=== PATIENT | male | born 1955 | race Caucasian/White ===

== ENCOUNTER → 2016-08-27 | Outpatient (CLI) | payer SELFPAY ==
[2016-08-27 15:19] LABS: Basophils # (A) 0.1 k/uL (0-0.2); Basophils % (A) 2 %; CH 34.6; Eosinophils # (A) 0.6 k/uL (0-0.7); Eosinophils % (A) 12 %; HCT 39.6 % (39.0-53.0); HDW 2.28; HGB 12.7 gm/dL (13.0-17.5); Luc # (Auto) 0.12; Luc % (Auto) 2; Lymphocytes # (A) 0.7 k/uL (1.0-4.8); Lymphocytes % (A) 14 %; MCH 33.9 pg (25.0-35.0); MCHC 32.1 g/dL (31.0-37.0); MCV 105.6 fL (80.0-100.0); Macrocytosis Moderate; Mean Platelet Volume 8.8; Monocytes # (A) 0.5 k/uL (0-1.0); Monocytes % (A) 10 %; Neutrophils # (A) 2.9 k/uL (1.3-7.7); Neutrophils % (A) 60 %; RBC 3.75 m/uL (4.30-5.90); RDW 14.6 % (11.5-15.5); WBC 4.9 k/uL (3.8-10.6); WBC (Perox) 5.05
[2016-08-27 15:29] LABS: Calcium 8.6 mg/dL (8.4-10.2); Magnesium 2.3 mg/dL (1.6-2.3); Total Bilirubin 1.6 mg/dL (0.2-1.3); Total Protein 7.8 g/dL (6.3-8.2); Uric Acid 11.6 mg/dL (3.5-8.5)
[2016-08-27 15:58] LABS: Prostate Specific Antigen 0.11 ng/mL (0.00-4.00)
[2016-08-27 16:04] LABS: Polychromasia Present
[2016-08-27 21:15] LABS: Hemoglobin A1C 5.1 % (4.2-6.1)
== END | disposition home or self-care (01) ==
LOC: LABWHC1 14:30
PROVIDERS: ATTEND Internal Medicine
DX: E11.22 Type 2 diabetes mellitus with diabetic chronic kidney disease (principal); N18.4 Chronic kidney disease, stage 4 (severe); D64.9 Anemia, unspecified; N40.0 Benign prostatic hyperplasia without lower urinary tract symptoms; E03.9 Hypothyroidism, unspecified; K74.60 Unspecified cirrhosis of liver; B19.20 Unspecified viral hepatitis C without hepatic coma
CPT/HCPCS: 36415; 80053; 80061; 82105; 82378; 83036; 83735; 84153; 84443; 84550; 85025; 86301

== ENCOUNTER → 2016-09-05 | Outpatient (CLI) | payer SELFPAY ==
--- NOTE | 2016-09-05 20:16 | CT ---
EXAMINATION TYPE: CT abdomen pelvis wo con DATE OF EXAM: 09/05/2016 7:09 PM COMPARISON: 07/10/2014 HISTORY: Patient poor historian. Patient has "bad liver" and umbilical hernia. CT DLP: 333.8 mGycm Automated exposure control for dose reduction was used. TECHNIQUE: Helical acquisition of images was performed from the lung bases through the pelvis. FINDINGS: The lung bases are clear. There is no pleural effusion. There is abdominal ascites. The margin of the liver is somewhat irregular consistent with cirrhosis. Spleen is large and measures 13 cm. There is no sign of pancreatic mass. There are multiple calcifications in the gallbladder. Bile ducts are not dilated. The gastric fundal wall is somewhat thickened. I see no discrete mass. There is no adrenal mass. Kidneys have normal size. There is no hydronephrosis. Ureters are not dilat ed. There is no retroperitoneal adenopathy. There is ascites fluid extending into an umbilical hernia . There is atherosclerosis vascular calcification. I see no sign of a bowel obstruction. There is no intestinal wall thickening. There are no dilated loops. There are multiple sigmoid diverticula. There is no sign of diverticulitis. There is mild anterior wedging of L5 and L2 vertebral bodies. Bladder distends smoothly. There is no evidence of a pelvic mass. IMPRESSION: THERE ARE CHANGES OF HEPATIC CIRRHOSIS. Moderate ascites. Ascites fluid is improved slightly compared to old exam. Umbilical hernia. The hernia is mostly new compared to old exam. Mild splenomegaly. Multiple calcified gallstones are increased in number compared to old exam. Athero sclerotic vascular disease. There are mild lumbar compression fractures that are probably new compare d to old exam.
== END | disposition home or self-care (01) ==
LOC: RADCTMAIN 16:54
PROVIDERS: ATTEND Internal Medicine
DX: K74.60 Unspecified cirrhosis of liver (principal); K42.9 Umbilical hernia without obstruction or gangrene; R16.1 Splenomegaly, not elsewhere classified; K80.20 Calculus of gallbladder without cholecystitis without obstruction; R18.8 Other ascites; I70.90 Unspecified atherosclerosis
CPT/HCPCS: 74176

== ENCOUNTER → 2016-12-03 | Outpatient (CLI) | payer MEDICARE ==
[2016-12-03 15:46] LABS: Mean Platelet Volume 7.8
[2016-12-03 16:01] LABS: INR 1.3 (<1.1); Prothrombin Time 12.7 sec (9.0-12.0)
== END | disposition home or self-care (01) ==
LOC: LABWHC1 15:13
PROVIDERS: ATTEND Internal Medicine
DX: D64.9 Anemia, unspecified (principal); K74.60 Unspecified cirrhosis of liver; B19.20 Unspecified viral hepatitis C without hepatic coma
CPT/HCPCS: 36415; 82105; 82378; 85049; 85610; 86301

== ENCOUNTER → 2017-01-22 | Outpatient (CLI) | payer MEDICARE ==
[2017-01-22 14:37] LABS: Aty Lym Flag Slight; CH 34.9; CHCM 33.6; HCT 37.6 % (39.0-53.0); HDW 2.55; HGB 12.7 gm/dL (13.0-17.5); MCH 35.3 pg (25.0-35.0); MCHC 33.8 g/dL (31.0-37.0); MCV 104.4 fL (80.0-100.0); Macrocytosis Slight; Mean Platelet Volume 8.8; WBC 5.3 k/uL (3.8-10.6); WBC (Perox) 5.29
[2017-01-22 14:43] LABS: Bilirubin, Delta 0.8 mg/dL (0.0-0.2); Total Bilirubin 2.4 mg/dL (0.2-1.3)
[2017-01-22 14:47] LABS: Add Differential Manual Differential
[2017-01-22 14:51] LABS: Nucleated Red Blood Cells 0 /100 WBC (0-0); Polychromasia Present; Total Cells Counted 100
[2017-01-23 14:56] LABS: Hepatits C Virus RNA, Quant <12 IU/mL (<12); LOG HCV IU/mL <1.08 (<1.08)
== END | disposition home or self-care (01) ==
LOC: LABWHC1 13:56
PROVIDERS: ATTEND Physician Assistant
DX: B18.2 Chronic viral hepatitis C (principal)
CPT/HCPCS: 36415; 80076; 85025; 87522

== ENCOUNTER → 2017-03-10 | Outpatient (CLI) | payer MEDICARE ==
[2017-03-10 14:11] LABS: Basophils % (A) 1 %; CH 35.2; CHCM 31.5; Eosinophils # (A) 0.4 k/uL (0-0.7); Eosinophils % (A) 7 %; HDW 2.76; HGB 10.5 gm/dL (13.0-17.5); Hypochromasia Slight; Luc # (Auto) 0.21; Luc % (Auto) 4; Lymphocytes # (A) 0.6 k/uL (1.0-4.8); Lymphocytes % (A) 10 %; MCH 36.8 pg (25.0-35.0); MCHC 32.7 g/dL (31.0-37.0); Macrocytosis Marked; Monocytes # (A) 0.6 k/uL (0-1.0); Monocytes % (A) 10 %; Neutrophils # (A) 3.7 k/uL (1.3-7.7); Neutrophils % (A) 68 %; RBC 2.84 m/uL (4.30-5.90); RDW 15.6 % (11.5-15.5); WBC 5.5 k/uL (3.8-10.6)
[2017-03-10 14:15] LABS: Bilirubin, Delta 0.7 mg/dL (0.0-0.2); MCV 112.5 fL (80.0-100.0); Total Bilirubin 2.3 mg/dL (0.2-1.3); Total Protein 8.3 g/dL (6.3-8.2)
[2017-03-10 14:59] LABS: Manual Review Performed; Polychromasia Present
--- NOTE | 2017-03-10 15:15 | US ---
EXAMINATION TYPE: US liver DATE OF EXAM: 03/10/2017 COMPARISON: Prior ultrasound abdomen 02/28/2016, CT abdomen pelvis 09/05/2016 CLINICAL HISTORY: K70.30 alcoholic cirrhosis of liver without cirrhosis. Hx of hep c EXAM MEASUREMENTS: Liver Length: 15.6 cm CHD: 0.3 cm Right Kidney: 9.6 x 4.5 x 4.0 cm Pancreas: Tail obscured by overlying bowel gas. Appears echogenic. Suboptimal visualization. Liver: Two hypoechoic lesions identified in the right lobe. 1- hypoechoic and solid appearing measu ring 2.5 x 2.1 x 2.3 cm with peripheral vascularity. 2 - hypoechoic nonvascular measuring 2.2 x 2.4 x 2.4 cm. Liver appears heterogenous, course and lobular. Gallbladder: In area of gallbladder, area seen with multiple echogenic areas with shadowing. No philippe ar lumen seen. Evidence for sonographic Porter's sign: neg CHD: wnl Right Kidney: wnl There is no ascites. IMPRESSION: Hypoechoic masses within the right lobe of the liver, consider liver MRI, hepatoma. Limit ed exam. Likely within the gallbladder there is wall echo shadow sign compatible with cholelithiasis. Gallbladder may be contracted.
[2017-03-12 14:52] LABS: Hepatits C Virus RNA, Quant <12 IU/mL (<12); LOG HCV IU/mL <1.08 (<1.08)
== END | disposition home or self-care (01) ==
LOC: RADUSWWP 13:02
DX: R16.0 Hepatomegaly, not elsewhere classified (principal); K70.30 Alcoholic cirrhosis of liver without ascites
CPT/HCPCS: 76705; 80076; 82105; 85025; 87522

== ENCOUNTER → 2017-03-19 | Outpatient (CLI) | payer MEDICARE | END | disposition home or self-care (01) | LOC: LABWHC1 16:15 | PROVIDERS: ATTEND Physician Assistant | DX: R16.0 Hepatomegaly, not elsewhere classified (principal) | CPT/HCPCS: 36415; 82565; 84520 ==

== ENCOUNTER → 2017-03-21 | Outpatient (CLI) | payer MEDICARE ==
--- NOTE | 2017-03-21 14:43 | MR ---
r EXAMINATION TYPE: MR liver wo con DATE OF EXAM: 03/21/2017 COMPARISON: Previous study dated 11/08/2014. HISTORY: Follow up per Ultrasound GFR 27 Unable to Administer Contrast for MRI Standard multiplanar, multisequence MRI departmental protocol Multiplanar, multisequence images of the abdomen were acquired. Diffusion weighted imaging was perfor med. FINDINGS: The study is limited due to the lack of contrast. There is ascites present. This has improv ed slightly from previous. The liver is normal in size measuring 15 cm. The liver is nodular and heterogenous. This is compatibl e with the patient's history of cirrhosis. Due to the lack of contrast I could not exclude a small fo cus of malignancy. There are multiple gallstones within the gallbladder. The portal vein appears patent. The spleen is enlarged measuring over 13 cm. Both adrenal glands appear normal. There is no evidence of hydronephrosis. The pancreas appears unremarkable. There is a large umbilical hernia containing fat only with a mouth measuring 3.2 cm. IMPRESSION: 1. LIMITED STUDY DUE TO THE LACK OF CONTRAST. 2. FINDINGS COMPATIBLE WITH CIRRHOSIS OF THE LIVER. 3. ASCITES. 4. SPLENOMEGALY.
== END | disposition home or self-care (01) ==
LOC: RADMRIMAIN 12:58
PROVIDERS: ATTEND Physician Assistant
DX: R16.1 Splenomegaly, not elsewhere classified (principal); R18.8 Other ascites
CPT/HCPCS: 74181

== ENCOUNTER → 2017-05-28 | Outpatient (CLI) | payer MEDICARE, OTHER ==
[2017-05-28 14:28] LABS: Basophils % (A) 1 %; CH 33.7; CHCM 32.5; Eosinophils # (A) 0.3 k/uL (0-0.7); Eosinophils % (A) 6 %; HCT 42.8 % (39.0-53.0); HDW 2.49; HGB 13.6 gm/dL (13.0-17.5); Luc % (Auto) 2; Lymphocytes # (A) 0.6 k/uL (1.0-4.8); Lymphocytes % (A) 15 %; MCHC 31.7 g/dL (31.0-37.0); MCV 104.1 fL (80.0-100.0); Macrocytosis Slight; Mean Platelet Volume 8.2; Monocytes # (A) 0.5 k/uL (0-1.0); Monocytes % (A) 11 %; Neutrophils # (A) 2.7 k/uL (1.3-7.7); Neutrophils % (A) 64 %; RBC 4.11 m/uL (4.30-5.90); RDW 14.2 % (11.5-15.5); WBC 4.2 k/uL (3.8-10.6); WBC (Perox) 4.25
[2017-05-28 14:37] LABS: Bilirubin, Delta 0.3 mg/dL (0.0-0.2); Calcium 9.2 mg/dL (8.4-10.2); Total Bilirubin 0.5 mg/dL (0.2-1.3); Total Protein 8.4 g/dL (6.3-8.2)
[2017-05-29 14:27] LABS: Hepatits C Virus RNA, Quant <12 IU/mL (<12); LOG HCV IU/mL <1.08 (<1.08)
== END | disposition home or self-care (01) ==
LOC: LABWHC1 14:06
PROVIDERS: ATTEND Physician Assistant
DX: B18.2 Chronic viral hepatitis C (principal); D64.9 Anemia, unspecified; J44.9 Chronic obstructive pulmonary disease, unspecified; K74.60 Unspecified cirrhosis of liver
CPT/HCPCS: 36415; 80053; 80074; 82105; 82140; 82248; 82977; 85025; 87522

== ENCOUNTER 2017-08-29 14:31 | Inpatient (IN) | payer MEDICARE, OTHER ==
[2017-08-29] MEDS ORDERED: SODIUM CHLORIDE 0.9% 500 ML IV STA (15:17)
[2017-08-29] MEDS ORDERED: PANTOPRAZOLE 40 MG/10 ML VIAL IVP STA (15:18)
[2017-08-29 15:35] LABS: HCT 37.8 % (39.0-53.0); HGB 12.5 gm/dL (13.0-17.5); MCH 35.5 pg (25.0-35.0); MCHC 33.2 g/dL (31.0-37.0); Macrocytosis Moderate; Mean Platelet Volume 8.9; RBC 3.54 m/uL (4.30-5.90); WBC 6.7 k/uL (3.8-10.6)
[2017-08-29 15:45] LABS: Albumin 3.4 g/dL (3.5-5.0); Calcium 9.7 mg/dL (8.4-10.2); Potassium 4.5 mmol/L (3.5-5.1); Total Protein 8.3 g/dL (6.3-8.2)
[2017-08-29 15:55] LABS: Creatine Kinase <20 U/L (55-170)
[2017-08-29 15:56] LABS: Platelet Count 91 k/uL (150-450)
[2017-08-29 16:01] LABS: INR 1.4 (<1.2); Partial Thromboplastin Time 25.9 sec (22.0-30.0); Prothrombin Time 12.9 sec (9.0-12.0)
[2017-08-29 16:08] LABS: Creatine Kinase MB <0.2 ng/mL (0.0-2.4); Troponin I <0.012 ng/mL (0.000-0.034)
[2017-08-29 16:11] LABS: Eosinophils # (M) 0.13 k/uL (0-0.7); Lymphocytes # (M) 0.34 k/uL (1.0-4.8); Monocytes # (M) 0.74 k/uL (0-1.0); Neutrophils # (M) 5.49 k/uL (1.3-7.7); Neutrophils % (M) 82 %; Nucleated Red Blood Cells 0 /100 WBC (0-0); Total Cells Counted 100
[2017-08-29 16:12] LABS: Polychromasia Present
--- NOTE | 2017-08-29 16:52 | ED ---
GI Bleed HPI - General Chief complaint: GI Bleed Stated complaint: Dark Urine Time Seen by Provider: 08/29/17 15:06 Source: patient, family Mode of arrival: ambulatory Limitations: no limitations - History of Present Illness Initial comments: 61-year-old male patient with past medical history significant for alcoholic cirrhosis, hepatitis C, and GI bleed presents to the emergency department today for complaints of dark black stool. Patient states that he has had several bowel movements beginning last night that contained large amounts of black stool. He states he does have some generalized abdominal pain however he does have chronic abdominal pain. Patient states that he has been weak and feels dizzy today. He denies any nausea or vomiting. Denies any syncope, palpitations, chest pain, or shortness of breath. Patient denies any recent rash , fever, chills, back pain, numbness, tingling, hematuria, dysuria, urinary urgency, urinary frequency, headache, visual changes, or any other complaints. He denies any use of anticoagulants. - Related Data Home Medications Medication Instructions Recorded Confirmed Cyanocobalamin [Vitamin B-12] 500 mcg PO DAILY 02/14/15 08/29/17 Folic Acid 1 mg PO DAILY 02/14/15 08/29/17 Multivitamins, Thera [Multivitamin 1 tab PO DAILY 02/14/15 08/29/17 (formulary)] Pyridoxine [Vitamin B-6] 100 mg PO DAILY 02/14/15 08/29/17 Thiamine [Vitamin B-1] 100 mg PO DAILY 02/14/15 08/29/17 Propranolol [Inderal] 5 mg PO DAILY 07/10/15 08/29/17 Spironolactone [Aldactone] 50 mg PO DAILY 07/10/15 08/29/17 Furosemide [Lasix] 40 mg PO BID@0800,1400 08/29/17 08/29/17 Spironolactone [Aldactone] 25 mg PO HS 08/29/17 08/29/17 Allergies Allergy/AdvReac Type Severity Reaction Status Date / Time No Known Allergies Allergy Verified 08/29/17 14:47 Review of Systems ROS Statement: Those systems with pertinent positive or pertinent negative responses have been documented in the HPI. ROS Other: All systems not noted in ROS Statement are negative. Past Medical History Past Medical History: GERD/Reflux, GI Bleed, Liver Disease, Myocardial Infarction ([place]) Additional Past Medical History / Comment(s): Alcoholic CHIRROSIS, ANASARCA, umbilical hernia,SMALL SLIDING HIATAL HERNIA, HX esophageal varies along g, nutritional myopathy and severe protein calorie malnutrition, chronic, cytopenia , hepatitis C, stigmata of chronic liver disease secondary to liver cirrhosis.Pt stated that he uses cane to balance self-gets dizzy when up. Last Myocardial Infarction Date:: 2001 History of Any Multi-Drug Resistant Organisms: None Reported Past Surgical History: Heart Catheterization, Tonsillectomy Additional Past Surgical History / Comment(s): multiple PARACENTESIS, EGD, BAND LIGATION OF ESOPHAGEAL VARICES Past Anesthesia/Blood Transfusion Reactions: No Reported Reaction Past Psychological History: Depression Smoking Status: Current every day smoker Past Alcohol Use History: None Reported Past Drug Use History: None Reported - Past Family History Father Additional Family Medical History / Comment(s): AT AGE 47 FROM [place], SMOKED. Mother Additional Family Medical History / Comment(s): AT AGE 84 HX UNK General Exam Limitations: no limitations General appearance: alert, in no apparent distress, other (This is a well- developed, well-nourished adult male patient in no acute distress. Vital signs upon presentation were temperature 97.7F, pulse 51, respirations 20, blood pressure 125/73, pulse ox 100% on room air.) Eye exam: Present: PERRL, EOMI, scleral icterus. Absent: normal appearance, conjunctival injection, periorbital swelling ENT exam: Present: normal exam, normal oropharynx, mucous membranes moist Respiratory exam: Present: normal lung sounds bilaterally. Absent: respiratory distress, wheezes, rales, rhonchi, stridor Cardiovascular Exam: Present: regular rate, normal rhythm, normal heart sounds. Absent: systolic murmur, diastolic murmur, rubs, gallop, clicks GI/Abdominal exam: Present: soft, tenderness (Left-sided abdomen), normal bowel sounds, hernia. Absent: distended, guarding, rebound, rigid Rectal exam: Present: black stool Neurological exam: Present: alert, oriented X3, CN II-XII intact Psychiatric exam: Present: normal affect, normal mood Skin exam: Present: warm, dry, intact, pallor. Absent: normal color, rash Course Vital Signs 08/29/17 08/29/17 08/29/17 14:36 15:49 16:54 Temperature 97.7 F Pulse Rate 51 L 46 L 49 L Respiratory 20 16 16 Rate Blood Pressure 125/73 140/71 135/73 O2 Sat by Pulse 100 100 100 Oximetry 08/29/17 08/29/17 17:30 18:28 Temperature Pulse Rate 49 L 50 L Respiratory 16 16 Rate Blood Pressure 127/68 130/77 O2 Sat by Pulse 100 100 Oximetry Medical Decision Making - Medical Decision Making 61-year-old male patient presented to the emergency department today for evaluation of dark black stools. He was reporting feeling weak and dizzy today. Physical examination did reveal some generalized abdominal tenderness. Labs reviewed and did reveal a hemoglobin of 12.5, PT of 12.9, INR 1.4, sodium 136, BUN of 33, creatinine of 1.49, bilirubin of 3.0, AST 123, alk phos 209, total protein 8.3, albumin 3.4. Stool was positive for occult blood. Patient vital signs remained stable in the department. He was started on Protonix. He will be admitted to the hospital Dr. Gonsalez and we will consult Dr. Cho for GI. - Lab Data Result diagrams: 08/29/17 14:58 08/29/17 14:58 Lab Results 08/29/17 08/29/17 08/29/17 Range/Units 14:58 14:58 14:58 WBC 6.7 (3.8-10.6) k/uL RBC 3.54 L (4.30-5.90) m/uL Hgb 12.5 L (13.0-17.5) gm/dL Hct 37.8 L (39.0-53.0) % MCV 107.0 H (80.0-100.0) fL MCH 35.5 H (25.0-35.0) pg MCHC 33.2 (31.0-37.0) g/dL RDW 15.0 (11.5-15.5) % Plt Count 91 L (150-450) k/uL Neutrophils % (Manual) 82 % Lymphocytes % (Manual) 5 % Monocytes % (Manual) 11 % Eosinophils % (Manual) 2 % Neutrophils # (Manual) 5.49 (1.3-7.7) k/uL Lymphocytes # (Manual) 0.34 L (1.0-4.8) k/uL Monocytes # (Manual) 0.74 (0-1.0) k/uL Eosinophils # (Manual) 0.13 (0-0.7) k/uL Nucleated RBCs 0 (0-0) /100 WBC Manual Slide Review Performed Polychromasia Present Macrocytosis Moderate PT (9.0-12.0) sec INR (<1.2) APTT (22.0-30.0) sec Sodium 136 L (137-145) mmol/L Potassium 4.5 (3.5-5.1) mmol/L Chloride 106 (98-107) mmol/L Carbon Dioxide 21 L (22-30) mmol/L Anion Gap 9 mmol/L BUN 33 H (9-20) mg/dL Creatinine 1.49 H (0.66-1.25) mg/dL Est GFR (MDRD) Af Amer 58 (>60 ml/min/1.73 sqM) Est GFR (MDRD) Non-Af 48 (>60 ml/min/1.73 sqM) Glucose 118 H (74-99) mg/dL Calcium 9.7 (8.4-10.2) mg/dL Total Bilirubin 3.0 H (0.2-1.3) mg/dL AST 123 H (17-59) U/L ALT 54 (21-72) U/L Alkaline Phosphatase 209 H (38-126) U/L Total Creatine Kinase <20 L (55-170) U/L CK-MB (CK-2) <0.2 (0.0-2.4) ng/mL CK-MB (CK-2) Rel Index Troponin I <0.012 (0.000-0.034) ng/mL Total Protein 8.3 H (6.3-8.2) g/dL Albumin 3.4 L (3.5-5.0) g/dL Stool Occult Blood (Negative) Blood Type Blood Type Recheck Antibody Screen Spec Expiration Date 08/29/17 08/29/17 08/29/17 Range/Units 14:58 14:58 15:45 WBC (3.8-10.6) k/uL RBC (4.30-5.90) m/uL Hgb (13.0-17.5) gm/dL Hct (39.0-53.0) % MCV (80.0-100.0) fL MCH (25.0-35.0) pg MCHC (31.0-37.0) g/dL RDW (11.5-15.5) % Plt Count (150-450) k/uL Neutrophils % (Manual) % Lymphocytes % (Manual) % Monocytes % (Manual) % Eosinophils % (Manual) % Neutrophils # (Manual) (1.3-7.7) k/uL Lymphocytes # (Manual) (1.0-4.8) k/uL Monocytes # (Manual) (0-1.0) k/uL Eosinophils # (Manual) (0-0.7) k/uL Nucleated RBCs (0-0) /100 WBC Manual Slide Review Polychromasia Macrocytosis PT 12.9 H (9.0-12.0) sec INR 1.4 H (<1.2) APTT 25.9 (22.0-30.0) sec Sodium (137-145) mmol/L Potassium (3.5-5.1) mmol/L Chloride (98-107) mmol/L Carbon Dioxide (22-30) mmol/L Anion Gap mmol/L BUN (9-20) mg/dL Creatinine (0.66-1.25) mg/dL Est GFR (MDRD) Af Amer (>60 ml/min/1.73 sqM) Est GFR (MDRD) Non-Af (>60 ml/min/1.73 sqM) Glucose (74-99) mg/dL Calcium (8.4-10.2) mg/dL Total Bilirubin (0.2-1.3) mg/dL AST (17-59) U/L ALT (21-72) U/L Alkaline Phosphatase (38-126) U/L Total Creatine Kinase (55-170) U/L CK-MB (CK-2) (0.0-2.4) ng/mL CK-MB (CK-2) Rel Index Troponin I (0.000-0.034) ng/mL Total Protein (6.3-8.2) g/dL Albumin (3.5-5.0) g/dL Stool Occult Blood Positive (Negative) Blood Type O Positive Blood Type Recheck No Antibody Screen NEGATIVE Spec Expiration Date 09/01/2017 - 2344 Disposition Clinical Impression: GI bleed Disposition: ADMITTED IP TO THIS [facility] Condition: Serious Referrals: Adis Norton MD [Primary Care Provider] - 1-2 days Decision to Admit Reason: Admit from EC Decision Date: 08/29/17 Decision Time: 18:30
[2017-08-29] MEDS ORDERED: ACETAMINOPHEN TAB 325 MG TAB PO PRN (18:26)
[2017-08-29] MEDS ORDERED: ONDANSETRON 4 MG/2 ML VIAL IVP PRN (18:26)
[2017-08-29] MEDS ORDERED: NALOXONE 0.4 MG/ML 1 ML VIAL IV PRN (18:26)
[2017-08-29 20:12] VITALS: BMI 23.6
[2017-08-29 20:18] LABS: HCT 33.8 % (39.0-53.0); HGB 11.1 gm/dL (13.0-17.5); MCH 35.5 pg (25.0-35.0); MCHC 32.7 g/dL (31.0-37.0); MCV 108.4 fL (80.0-100.0); Macrocytosis Marked; RBC 3.11 m/uL (4.30-5.90); WBC 6.9 k/uL (3.8-10.6)
[2017-08-29 20:20] LABS: Platelet Count 70 k/uL (150-450)
[2017-08-29] MEDS: SODIUM CHLORIDE 0.9% 1,000 ML IV SCH (20:34)
[2017-08-30] MEDS: PANTOPRAZOLE 40 MG/10 ML VIAL IV SCH (07:13)
[2017-08-30 07:25] LABS: Anisocytosis Slight; Basophils % (A) 1 %; Eosinophils # (A) 0.2 k/uL (0-0.7); Eosinophils % (A) 3 %; HCT 33.1 % (39.0-53.0); HGB 10.5 gm/dL (13.0-17.5); Lymphocytes # (A) 0.5 k/uL (1.0-4.8); Lymphocytes % (A) 8 %; MCH 34.7 pg (25.0-35.0); MCHC 31.7 g/dL (31.0-37.0); MCV 109.4 fL (80.0-100.0); Macrocytosis Marked; Mean Platelet Volume 8.8; Monocytes # (A) 0.6 k/uL (0-1.0); Monocytes % (A) 11 %; Neutrophils # (A) 4.2 k/uL (1.3-7.7); Neutrophils % (A) 75 %; RBC 3.03 m/uL (4.30-5.90); RDW 16.4 % (11.5-15.5); WBC 5.6 k/uL (3.8-10.6)
[2017-08-30 07:30] LABS: Platelet Count 77 k/uL (150-450)
[2017-08-30 07:31] LABS: Albumin 2.8 g/dL (3.5-5.0); Potassium 4.3 mmol/L (3.5-5.1); Total Bilirubin 2.4 mg/dL (0.2-1.3); Total Protein 7.2 g/dL (6.3-8.2)
[2017-08-30 10:06] LABS: Poikilocytosis (M) Present
--- NOTE | 2017-08-30 12:40 | P.HPIM ---
History of Present Illness Chief complaint GI bleeding. History of present illness The patient is a 61-year-old male patient of Dr. Norton for whom I am covering. Patient apparently noticed a dark melanotic stool yesterday and presented to the emergency room. He has had previous episode of gastritis esophageal bleeding in the past. Patient has a past history of alcoholic cirrhosis along with hepatitis C and is known to have esophageal varices. He denies any nausea or vomiting with this episode. Has had some vague epigastric abdominal discomfort but not much worse than his usual abdominal discomfort from his hernia. He's had no chest pain or syncopal episodes. Since his admission he states he has not had further melanotic stools. Past medical history as mentioned above patient has a history of alcoholic cirrhosis of the liver and hepatitis C infection. He also has history of esophageal varices with bleeding approximately 2 years ago. Patient did have a gastroscopy performed last June and at that time found to have large distal esophageal varices and had laser ligation treatment at that time. Positive ventral hernia. Previous history of paracentesis for recurrent ascites in the past. History of thrombocytopenia. History of chronic kidney disease. History of bradycardia on propranolol. History of possible old myocardial infarction. Did have previous heart catheterization. Review of systems As mentioned in the history of present illness. He denies any unusual headaches or visual disturbances. No fever or chills. No cough or chest pain. No hemoptysis or hematemesis. Denies any urinary or bowel symptomatology. No edema. No lightheadedness or syncope. No known ALLERGIES Home medications Spironolactone 25 mg at at bedtime Thiamine 100 mg daily Vitamin B6 100 mg daily Inderal 5 mg daily Multiple vitamin daily Lasix 40 mg twice a day Folic acid 1 mg daily Vitamin B 12 500 g daily. Family history Apparently he has a sister who has underlying female cancer. Father at age 47 with coronary artery disease. Mother also at age 84 of unknown causes. Social history Apparently patient is a reformed alcoholic. Continues to smoke daily. Physical examination Patient is lying in bed in no acute distress. Vital signs reveal temperature 97.2 with a pulse of 56 and respirations 16. Blood pressure 111/63 and he is 98% saturated on room air. Head and neck exam unremarkable. No definite thyromegaly, adenopathy or carotid bruits detected. Lungs are clear to auscultation. Heart tones are regular without murmurs appreciated. Abdomen reveals a large ventral hernia without abdominal tenderness, masses or organomegaly detected. Extremities reveal no edema. Occult blood positive. He is generally alert. No cranial nerve deficits. No focal weakness. No tremors. Laboratory Initial hemoglobin was 12.5 is decreased down to 10.5. White count stable at 6000. Platelet count from 70-90,000. INR is 1.4. PTT 25.9. Sodium is 136 with potassium 4.3. CO2 content of 20. BUN of 36 with a creatinine 1.59 given him a GFR 44. Bilirubin 2.4 this morning. AST of 91. Alk phos 172. Albumin low at 2.8. EKG showed sinus bradycardia without evidence of ischemic changes. Impressions 1. Likely upper gastrointestinal bleeding with melanotic stools and blood loss anemia as stated above. Likely related to underlying esophageal varices. 2. History of previous upper GI bleeding along with history of alcoholic cirrhosis and hepatitis C. 3. Chronic renal failure stage III. 4. History of thrombocytopenia 5. History of coronary artery disease. 6. Ventral hernia 7. Sinus bradycardia on beta blockers. 8. Moderate protein malnutrition with low albumin of 2.8. Plans Continue to monitor patient clinically for melanotic stools and also repeat hemoglobin and platelet studies. Consultation has been placed with gastroenterology and apparently patient states plans are for gastroscopy tomorrow. Other recommendations and treatment pending clinical response and results of above. Patient also on proton pump inhibitors. Clear liquids. At this time we'll also hold patient's furosemide and continue most other home medications. Past Medical History Past Medical History: GERD/Reflux, GI Bleed, Liver Disease, Myocardial Infarction ([place]) Additional Past Medical History / Comment(s): Alcoholic CHIRROSIS, ANASARCA, umbilical hernia,SMALL SLIDING HIATAL HERNIA, HX esophageal varies along g, nutritional myopathy and severe protein calorie malnutrition, chronic, cytopenia , hepatitis C, stigmata of chronic liver disease secondary to liver cirrhosis.Pt stated that he uses cane to balance self-gets dizzy when up. Last Myocardial Infarction Date:: 2001 History of Any Multi-Drug Resistant Organisms: None Reported Past Surgical History: Heart Catheterization, Tonsillectomy Additional Past Surgical History / Comment(s): multiple PARACENTESIS, EGD, BAND LIGATION OF ESOPHAGEAL VARICES Past Anesthesia/Blood Transfusion Reactions: No Reported Reaction Past Psychological History: No Psychological Hx Reported, Depression Smoking Status: Current every day smoker Past Alcohol Use History: None Reported Additional Past Alcohol Use History / Comment(s): STARTED SMOKING AT AGE 6 SMOKES 2 PACKS PER WEEK, Past Drug Use History: None Reported Additional Drug Use History / Comment(s): CURRENTLY SMOKES MARIJUANA, OTHER DRUG USE STATES PAST HX - Past Family History Father Additional Family Medical History / Comment(s): AT AGE 47 FROM [place], SMOKED. Mother Additional Family Medical History / Comment(s): AT AGE 84 HX UNK Medications and Allergies Home Medications Medication Instructions Recorded Confirmed Type Cyanocobalamin [Vitamin B-12] 500 mcg PO DAILY 02/14/15 08/29/17 History Folic Acid 1 mg PO DAILY 02/14/15 08/29/17 History Multivitamins, Thera [Multivitamin 1 tab PO DAILY 02/14/15 08/29/17 History (formulary)] Pyridoxine [Vitamin B-6] 100 mg PO DAILY 02/14/15 08/29/17 History Thiamine [Vitamin B-1] 100 mg PO DAILY 02/14/15 08/29/17 History Propranolol [Inderal] 5 mg PO DAILY 07/10/15 08/29/17 History Spironolactone [Aldactone] 50 mg PO DAILY 07/10/15 08/29/17 History Furosemide [Lasix] 40 mg PO BID@0800,1400 08/29/17 08/29/17 History Spironolactone [Aldactone] 25 mg PO HS 08/29/17 08/29/17 History Allergies Allergy/AdvReac Type Severity Reaction Status Date / Time No Known Allergies Allergy Verified 08/29/17 14:47 Physical Exam Vitals: Vital Signs Temp Pulse Pulse Resp BP BP Pulse Ox 08/30/17 09:39 97.2 F L 56 L 16 111/63 98 08/30/17 07:00 98.8 F 57 L 16 86/54 99 08/30/17 00:00 51 L 08/29/17 22:04 97.7 F 50 L 16 129/67 100 08/29/17 19:28 97.7 F 51 L 16 08/29/17 19:27 97.9 F 08/29/17 18:28 50 L 16 130/77 100 08/29/17 17:30 49 L 16 127/68 100 08/29/17 16:54 49 L 16 135/73 100 08/29/17 15:49 46 L 16 140/71 100 08/29/17 14:36 97.7 F 51 L 20 125/73 100 Intake and Output 08/29/17 08/30/17 08/30/17 22:59 06:59 14:59 Intake Total 500 Balance 500 Intake: Oral 500 Other: Voiding Method Toilet # Voids 1 1 Weight 72.72 kg Results CBC & Chem 7: 08/30/17 06:18 08/30/17 06:18 Labs: Abnormal Lab Results - Last 24 Hours (Table) 08/29/17 08/29/17 08/29/17 Range/Units 14:58 14:58 14:58 RBC 3.54 L (4.30-5.90) m/uL Hgb 12.5 L (13.0-17.5) gm/dL Hct 37.8 L (39.0-53.0) % MCV 107.0 H (80.0-100.0) fL MCH 35.5 H (25.0-35.0) pg RDW (11.5-15.5) % Plt Count 91 L (150-450) k/uL Lymphocytes # (1.0-4.8) k/uL Lymphocytes # (Manual) 0.34 L (1.0-4.8) k/uL PT (9.0-12.0) sec INR (<1.2) Sodium 136 L (137-145) mmol/L Chloride (98-107) mmol/L Carbon Dioxide 21 L (22-30) mmol/L BUN 33 H (9-20) mg/dL Creatinine 1.49 H (0.66-1.25) mg/dL Glucose 118 H (74-99) mg/dL Total Bilirubin 3.0 H (0.2-1.3) mg/dL AST 123 H (17-59) U/L Alkaline Phosphatase 209 H (38-126) U/L Total Creatine Kinase <20 L (55-170) U/L Total Protein 8.3 H (6.3-8.2) g/dL Albumin 3.4 L (3.5-5.0) g/dL 08/29/17 08/29/17 08/30/17 Range/Units 14:58 20:05 06:18 RBC 3.11 L 3.03 L (4.30-5.90) m/uL Hgb 11.1 L 10.5 L (13.0-17.5) gm/dL Hct 33.8 L 33.1 L (39.0-53.0) % MCV 108.4 H 109.4 H (80.0-100.0) fL MCH 35.5 H (25.0-35.0) pg RDW 16.4 H (11.5-15.5) % Plt Count 70 L 77 L (150-450) k/uL Lymphocytes # 0.5 L (1.0-4.8) k/uL Lymphocytes # (Manual) (1.0-4.8) k/uL PT 12.9 H (9.0-12.0) sec INR 1.4 H (<1.2) Sodium (137-145) mmol/L Chloride (98-107) mmol/L Carbon Dioxide (22-30) mmol/L BUN (9-20) mg/dL Creatinine (0.66-1.25) mg/dL Glucose (74-99) mg/dL Total Bilirubin (0.2-1.3) mg/dL AST (17-59) U/L Alkaline Phosphatase (38-126) U/L Total Creatine Kinase (55-170) U/L Total Protein (6.3-8.2) g/dL Albumin (3.5-5.0) g/dL 08/30/17 Range/Units 06:18 RBC (4.30-5.90) m/uL Hgb (13.0-17.5) gm/dL Hct (39.0-53.0) % MCV (80.0-100.0) fL MCH (25.0-35.0) pg RDW (11.5-15.5) % Plt Count (150-450) k/uL Lymphocytes # (1.0-4.8) k/uL Lymphocytes # (Manual) (1.0-4.8) k/uL PT (9.0-12.0) sec INR (<1.2) Sodium 136 L (137-145) mmol/L Chloride 109 H (98-107) mmol/L Carbon Dioxide 20 L (22-30) mmol/L BUN 36 H (9-20) mg/dL Creatinine 1.59 H (0.66-1.25) mg/dL Glucose (74-99) mg/dL Total Bilirubin 2.4 H (0.2-1.3) mg/dL AST 91 H (17-59) U/L Alkaline Phosphatase 172 H (38-126) U/L Total Creatine Kinase (55-170) U/L Total Protein (6.3-8.2) g/dL Albumin 2.8 L (3.5-5.0) g/dL Thrombosis Risk Factor Assmnt - Choose All That Apply Any of the Below Risk Factors Present?: Yes Each Factor Represents 1 point: Age 41-60 years Other Risk Factors: Yes Each Risk Factor Represents 2 Points: Age 61-74 years Other congenital or acquired thrombophilia - If yes, enter type in comment: No Thrombosis Risk Factor Assessment Total Risk Factor Score: 3 Thrombosis Risk Factor Assessment Level: Moderate Risk
--- NOTE | 2017-08-30 12:43 | CONS ---
CONSULTATION DATE OF SERVICE: August 30, 2017. REASON FOR CONSULTATION: Gastrointestinal bleed. HISTORY OF PRESENT ILLNESS: The patient is a 61-year-old pleasant white male with history of alcoholic cirrhosis of the liver and history of hepatitis C infection, presents to the hospital with multiple episodes of black tarry stools. He had approximately 12 episodes of black tarry stools on Thursday night and Thursday morning, came into the emergency room and subsequently admitted to the hospital. Since being in the hospital, did not have any further episodes of bleeding. He denies any abdominal pain, reports no nausea, vomiting. He had 1 small dark stool this morning. He reports no fever, chills, or night sweats. He does have history of esophageal varices and the last upper endoscopy done by me was in June of 2017 at which time he was noted to have multiple large esophageal varices that were ligated and . He has history of chronic hepatitis C infection, was treated with oral antiviral medication and in the last year and he is in remission. PAST MEDICAL HISTORY: Significant for GERD, chronic hep C infection, alcoholic cirrhosis of the liver. Coronary artery disease status post LA in the past, history of ascites. PAST SURGICAL HISTORY: Tonsillectomy, EGD with esophageal variceal ligation, paracentesis. MEDICATIONS: At home, Lasix, Aldactone, Folic acid, multivitamin, pyridoxin and . REVIEW OF SYSTEMS: Cardiopulmonary: No chest pain, shortness of breath. Genitourinary: No dysuria or hematuria. Musculoskeletal: unremarkable. Skin: Unremarkable. Endocrine: Unremarkable. Psychiatric: Unremarkable. ENT/vision unremarkable. Neurology unremarkable. Hematology unremarkable. PHYSICAL EXAMINATION: Appears comfortable. Blood pressure 86/54, pulse is 57, temperature 98. HEENT: Unremarkable. Conjunctivae pink. Sclerae anicteric. Oral cavity no lesions. Neck: No jugular venous distention or lymph node enlargement. Chest was clear to auscultation. HEART: Regular rate and rhythm. ABDOMEN: Soft. Bowel sounds are positive. No organomegaly. There was a small umbilical hernia noted. Small amount of ascites noted. Extremities no pedal edema. Skin no rashes. NEUROLOGIC: Alert and oriented x3. No focal deficits. LAB: Done today WBC 5.6, hemoglobin 10.5, yesterday it was 12.5, platelets are 77. INR 1.4. AST 91, ALT 55, alkaline phosphatase 172, T bilirubin 2.4. Hemoccult stool positive. IMPRESSION: 1. This is a patient with history of alcoholic cirrhosis of the liver and history of chronic hepatitis C infection, presents to the hospital with multiple episodes of black tarry stools. However, since being in the hospital, he did not have any further episodes of bleeding. Hemoglobin dropped from 12-10.5 g/dL. Presently hemodynamically and clinically stable. He did have esophageal varices in the past. Last EGD done by me with esophageal variceal ligation was in June 2017. 2. Alcoholic cirrhosis of the liver with portal hypertension. 3. History of hepatitis C in the past that was treated with oral antiviral therapy a year ago and then had a sustained virological response. RECOMMENDATIONS: 1. Clear liquid diet. 2. IV Protonix. 3. EGD tomorrow. 4. Discussed with the patient risks, benefits, and complications and is agreeable to it. Thank you for this consultation. MMKUNALL / IJN: [id number] /
[2017-08-30] MEDS: SODIUM CHLORIDE 0.9% 1,000 ML IV SCH (16:18)
[2017-08-30] MEDS: SPIRONOLACTONE 25 MG TAB PO SCH (20:10)
[2017-08-31 08:26] LABS: HCT 30.9 % (39.0-53.0); HGB 9.8 gm/dL (13.0-17.5); MCH 34.7 pg (25.0-35.0); MCHC 31.8 g/dL (31.0-37.0); MCV 109.2 fL (80.0-100.0); Macrocytosis Marked; Mean Platelet Volume 9.1; RBC 2.83 m/uL (4.30-5.90); RDW 15.6 % (11.5-15.5); WBC 5.8 k/uL (3.8-10.6)
[2017-08-31 08:28] LABS: Platelet Count 73 k/uL (150-450)
[2017-08-31 08:45] LABS: Anion Gap 8 mmol/L; Blood Urea Nitrogen 28 mg/dL (9-20); Calcium 8.2 mg/dL (8.4-10.2); Carbon Dioxide 21 mmol/L (22-30); Chloride 110 mmol/L (98-107); Glucose 86 mg/dL (74-99); Potassium 3.9 mmol/L (3.5-5.1); Sodium 139 mmol/L (137-145)
[2017-08-31] MEDS: PANTOPRAZOLE 40 MG/10 ML VIAL IV SCH (09:08)
[2017-08-31] MEDS: PROPRANOLOL 10 MG TAB PO SCH (09:09)
[2017-08-31] MEDS: SPIRONOLACTONE 25 MG TAB PO SCH ×2 (09:09→20:18)
[2017-08-31] MEDS: SODIUM CHLORIDE 0.9% 1,000 ML IV SCH ×4 (11:12→18:23)
[2017-08-31] MEDS: FOLIC ACID 1 MG TAB PO SCH (12:06)
[2017-08-31] MEDS: THIAMINE 100 MG TAB PO SCH (12:06)
[2017-08-31] MEDS: CYANOCOBALAMIN 500 MCG TAB PO SCH (12:06)
[2017-08-31] MEDS: PYRIDOXINE 50 MG TAB PO SCH (12:06)
[2017-08-31] MEDS ORDERED: IV FLUID CONTINUATION 1,000 ML IV ONE (12:53)
[2017-08-31] MEDS ORDERED: LIDOCAINE 1% INJ 10MG/ML (20 ML MDV) ONE (12:54)
[2017-08-31] MEDS ORDERED: PROPOFOL 10 MG/ML 20 ML VIAL IV ONE (12:54)
--- NOTE | 2017-08-31 13:32 | P.PCN ---
Date of Procedure: 08/31/17 Procedure(s) Performed: BRIEF HISTORY: Patient is a 61-year-old, pleasant,, scheduled for an upper endoscopy as a part of evaluation of acute upper GI bleed. He was admitted hospital with multiple episodes of melena for the last 2 days' duration. Hemoglobin dropped from 12-9 g/dL. He does have history of colic cirrhosis of the liver and last upper endoscopy in June 2017 showed esophageal varices for which she underwent recent ligation.. PROCEDURE PERFORMED: Esophagogastroduodenoscopy with variceal ligation. PREOPERATIVE DIAGNOSIS: Acute upper GI bleed/alcohol cirrhosis of the. IV sedation per anesthesia. PROCEDURE: After informed consent was obtained, the patient was brought into the endoscopy unit. IV sedation was administered by Anesthesia under continuous monitoring. Initially the Olympus GIF-140 video endoscope was inserted into the mouth. Esophagus intubated without any difficulty. It was gradually advanced into the stomach and duodenum and carefully examined. The bulb and the second part of the duodenum appeared normal. The scope at this time was withdrawn to the stomach, adequately insufflated with air, and upon careful examination, mucosa of the antrum, body, cardia and the fundus had changes consistent with portal gastropathy. No active bleeding noted. No gastric varices identified. The scope was then withdrawn into the esophagus. The GE junction was located at 39 cm from the incisors. There were grade in the very large esophageal varices noted in the mid and distal esophagus with stigmata of recent bleed but no active bleeding. At this time the scope was removed. Esophageal variceal ligation equipment was introduced the tip of the scope and esophagus intubated without any difficulty and was gradually advanced into the distal esophagus. Using suction total of 4 bands were deployed in the mid and distal esophageal varices seen and the patient tolerated the procedure well. IMPRESSION: 1. Large mid/distal esophageal varices status post variceal ligation as described above. 2. Severe portal hypertensive gastropathy. RECOMMENDATIONS: The findings of this examination were discussed with the patient as well as his family. He will be on a full liquid diet today and repeat CBC in the morning.
[2017-08-31] MEDS: NICOTINE 14MG/24HR PATCH TRANSDERM SCH (14:19)
[2017-08-31 20:06] LABS: Basophils % (A) 1 %; Eosinophils # (A) 0.1 k/uL (0-0.7); Eosinophils % (A) 2 %; HCT 35.1 % (39.0-53.0); HGB 11.4 gm/dL (13.0-17.5); Lymphocytes # (A) 0.3 k/uL (1.0-4.8); Lymphocytes % (A) 5 %; MCHC 32.4 g/dL (31.0-37.0); MCV 111.3 fL (80.0-100.0); Macrocytosis Marked; Monocytes # (A) 0.5 k/uL (0-1.0); Monocytes % (A) 8 %; Neutrophils # (A) 4.8 k/uL (1.3-7.7); Neutrophils % (A) 82 %; Platelet Count 85 k/uL (150-450); RBC 3.16 m/uL (4.30-5.90); RDW 14.9 % (11.5-15.5); WBC 5.9 k/uL (3.8-10.6)
[2017-08-31 20:50] LABS: Polychromasia Present
--- NOTE | 2017-08-31 21:41 | PN ---
PROGRESS NOTE DATE OF SERVICE: August 31, 2017. ATTENDING PHYSICIAN: Dr. Norton. This is the 1st day of service. 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 The patient underwent esophagogastroduodenoscopy with the variceal ligation with the preoperative diagnosis acute upper GI bleeding with the underlying alcoholic cirrhosis of the liver. The impression was large mid and distal esophageal varices and status post variceal ligation, #2 severe portal hypertension, severe portal hypertensive gastropathy per Dr. Cho who did the EGD today. She recommended, she discussed it with the family and the patient and patient will be on a full liquid diet and repeat CBC in the morning. The patient as of today in the evening, he has difficulty of urination and as well as limited urine output. We did a bladder catheter followed by straight cath and his IV fluid was increased because of the hypotension. Currently now is after maneuver, he has been now improved. Blood pressure now is at the evening 7:09 pm. His blood pressure went up to 149/69 and mean pressure is 95. His heart rate is 50 and temperature is 96.3. His respiratory rate is 16. He is on room air 100%. LABORATORY: Today, indicating that when he was admitted on August 29, 2017, his hemoglobin was 12.5 with normal white count 6.7 and hematocrit 37.8 and he had macrocytosis with the MCV 107.0 with the underlying history of alcoholic liver cirrhosis. His platelet count 91. Today his white count on August 31, 5.8. His hemoglobin dropped to 9.8 and hematocrit 30.9, and his platelet count 73. His protime at the time of admission was indicating INR 1.4 and protime 12.9, PTT was normal. Today showed that electrolytes indicating sodium 139, potassium 3.9, chloride 110, and carbon dioxide 21, and his renal function at the time of admission indicating BUN 33 and creatinine 1.49 with the estimated glomerular filtration rate for non- 48. However, patient apparently due to the blood in the gut and mild dehydration today his GFR went up to 56, and he has a glucose of 86, and calcium is 8.2 from 9. Probably because the patient was NPO. He has also elevated total bilirubin 2.4 and the AST is 91 and ALT is 55 and alkaline phosphatase is 172 on August 30, 2017. His albumin was 2.8 from 3.4, probably with the patient n.p.o. for the procedure. On admission, the patient had an EKG and the EKG was indicating market sinus bradycardia 48 beats per minute. However, otherwise no other acute abnormality and that is secondary to the beta-dot that applied to the patient to protect him from the bleeding, but still the patient bleed and had ligation. Currently we will resume his medication and as well and he is on IV fluid. We increased it to 100 mL an hour. He is on spironolactone 50 mg daily and he is also on spironolactone 25 mg at q.h.s. and thiamin 100 mg. The patient will be started on his home medication. He was on propranolol 5 mg daily and that with the association of the bradycardia. He is on patch and he was on vitamin B12 500 mcg once a daily and folic acid 1 mg once a day and also pantoprazole 40 mg once a day. He was also on vitamin B6, pyridoxin and the spironolactone and thiamin. Currently, the patient on his home medication, however, only missing his Lasix and we held because of the blood pressure was earlier low and we increased his blood pressure medication. However, if the blood pressure is improving and we probably will continue his home medication. He has blood pressure today in the morning 101/53, and in the evening is improved. We will wait for tomorrow and then subsequently we will recheck his electrolytes and CBC and resume all home medication and if it is okay for discharge from Gastroenterology, we will discharge home. On the examination [id number], the patient is conscious, alert, oriented. He has mild pale color and he had history of hepatitis C, but he has been treated with and cleared from hep C. His chest was clear with increased anteroposterior diameter and COPD with the history of smoking. The heart was regular sinus rhythm. The abdomen is soft, positive bowel sounds with some discomfort in the epigastric area and also history of the procedure done today and also history of ascites, which is chronic with underlying cirrhosis of the liver. He is easy bleeder with the thrombocytopenia. Also, his extremities no edema and positive pulses. ASSESSMENT: 1. Variceal bleeding and underlying alcoholic liver cirrhosis and associated with thrombocytopenia. 2. Anemia secondary to blood loss from the variceal bleeding of the esophagus. 3. Underlying liver cirrhosis and ascites has been present and he has not been having abdominal paracentesis for few months and will see if this is reaccumulate or note. 4. Hypotension postoperative and post procedure and currently recovered. We will check his labs in a.m. further follow up with Dr. Cho and in a.m. we will reassess. MMODL / IJN: [id number] /
[2017-09-01] MEDS: SODIUM CHLORIDE 0.9% 1,000 ML IV SCH (06:03)
[2017-09-01 07:44] VITALS: RESP 16; TEMP 97.6
[2017-09-01 08:21] LABS: Anion Gap 9 mmol/L; Blood Urea Nitrogen 22 mg/dL (9-20); Carbon Dioxide 19 mmol/L (22-30); Chloride 113 mmol/L (98-107); Glucose 104 mg/dL (74-99); Potassium 4.1 mmol/L (3.5-5.1); Sodium 141 mmol/L (137-145)
[2017-09-01 08:38] LABS: Basophils % (A) 0 %; Eosinophils # (A) 0.2 k/uL (0-0.7); Eosinophils % (A) 3 %; HCT 34.3 % (39.0-53.0); HGB 11.3 gm/dL (13.0-17.5); Lymphocytes # (A) 0.4 k/uL (1.0-4.8); Lymphocytes % (A) 6 %; MCH 36.4 pg (25.0-35.0); MCHC 33.1 g/dL (31.0-37.0); Macrocytosis Marked; Mean Platelet Volume 8.7; Monocytes # (A) 0.5 k/uL (0-1.0); Monocytes % (A) 8 %; Neutrophils # (A) 4.6 k/uL (1.3-7.7); Neutrophils % (A) 80 %; RBC 3.12 m/uL (4.30-5.90); WBC 5.7 k/uL (3.8-10.6)
[2017-09-01 08:40] LABS: Platelet Count 81 k/uL (150-450)
[2017-09-01] MEDS: PANTOPRAZOLE 40 MG/10 ML VIAL IV SCH (09:09)
[2017-09-01] MEDS: NICOTINE 14MG/24HR PATCH TRANSDERM SCH (09:09)
[2017-09-01] MEDS: SPIRONOLACTONE 25 MG TAB PO SCH (09:09)
[2017-09-01] MEDS: PROPRANOLOL 10 MG TAB PO SCH (09:10)
--- NOTE | 2017-09-01 09:48 | P.DS ---
Providers Date of admission: 08/29/17 19:17 Expected date of discharge: 09/01/17 Attending physician: Rikki Aviles Consults: 08/29/17 18:26 Consult Physician Stat Consulting Provider: Shania Cho Consult Reason/Comments: GI Bleed Do you want consulting provider notified?: Yes Primary care physician: Adis Norton dictated on 09/01/17 #[id number]. Patient Condition at Discharge: Serious Plan - Discharge Summary Discharge Rx Participant: No New Discharge Prescriptions: New Furosemide [Lasix] 40 mg PO AC-LUNCH tab Continue Folic Acid 1 mg PO DAILY Pyridoxine [Vitamin B-6] 100 mg PO DAILY Multivitamins, Thera [Multivitamin (formulary)] 1 tab PO DAILY Thiamine [Vitamin B-1] 100 mg PO DAILY Cyanocobalamin [Vitamin B-12] 500 mcg PO DAILY Propranolol [Inderal] 5 mg PO DAILY Spironolactone [Aldactone] 50 mg PO DAILY Spironolactone [Aldactone] 25 mg PO HS Discontinued Furosemide [Lasix] 40 mg PO BID@0800,1400 Discharge Medication List Cyanocobalamin [Vitamin B-12] 500 mcg PO DAILY 02/14/15 [History] Folic Acid 1 mg PO DAILY 02/14/15 [History] Multivitamins, Thera [Multivitamin (formulary)] 1 tab PO DAILY 02/14/15 [History ] Pyridoxine [Vitamin B-6] 100 mg PO DAILY 02/14/15 [History] Thiamine [Vitamin B-1] 100 mg PO DAILY 02/14/15 [History] Propranolol [Inderal] 5 mg PO DAILY 07/10/15 [History] Spironolactone [Aldactone] 50 mg PO DAILY 07/10/15 [History] Spironolactone [Aldactone] 25 mg PO HS 08/29/17 [History] Furosemide [Lasix] 40 mg PO AC-LUNCH tab 09/01/17 [Rx] Follow up Appointment(s)/Referral(s): Adis Norton MD [Primary Care Provider] - 3 Days Shania Cho MD [STAFF PHYSICIAN] - 1 Week Discharge Disposition: HOME SELF-CARE
--- NOTE | 2017-09-01 09:53 | P.PN ---
Subjective Progress Note Date: 09/01/17 Principal diagnosis: Acute upper GI bleed Admitted with acute upper GI bleed with history of underlying alcohol liver cirrhosis and treated hepatitis C. EGD yesterday reported large mid distal esophageal varices status post ligation with severe portal hypertensive gastropathy. Feels well this morning. Hemoglobin 11.3. Platelet 81,000. BUN 22. Creatinine 1.1. Tolerating regular diet. Denies hematemesis hematochezia melena. No abdominal pain. Afebrile. Objective - Vital Signs Vital signs: Vital Signs Temp 97.6 F 09/01/17 07:00 Pulse 62 09/01/17 07:00 Resp 16 09/01/17 07:00 BP 133/61 09/01/17 07:00 Pulse Ox 97 09/01/17 07:00 Intake & Output 08/31/17 09/01/17 09/01/17 18:59 06:59 18:59 Intake Total 520 Output Total 250 200 Balance 270 -200 Intake: IV 100 Intake, IV Titration 300 Amount Sodium Chloride 0.9% 1, 300 000 ml @ 100 mls/hr IV . Q10H [facility] Rx#:[id number] Oral 120 Output: Urine 200 Post Void Residual 250 Other: Voiding Method Toilet Toilet Urinal Urinal # Voids 2 1 - Exam General appearance: The patient is alert, oriented, in no acute distress. HET: Head is normocephalic and atraumatic. Pupils are equal and reactive. Oropharynx is clear without lesions. Neck: Supple without lymphadenopathy. Trachea midline. Heart: S1 S2. Regular rate and rhythm. Lungs: No crackles or wheezes are heard. Abdomen: Soft, nontender, reducible ventral hernia, mildly bloated with bowel sounds. No peritoneal signs. No palpable organomegaly or masses. Extremities: Normal skin color and turgor. No cyanosis, rash, ulceration, clubbing, or edema. Radial and pedal pulses are 2/4 bilaterally. Neurological: No focal deficits. Strength and sensation are grossly intact. - Labs CBC & Chem 7: 09/01/17 07:21 09/01/17 07:21 Labs: Abnormal Lab Results - Last 24 Hours (Table) 08/31/17 09/01/17 09/01/17 Range/Units 19:39 07:21 07:21 RBC 3.16 L 3.12 L (4.30-5.90) m/uL Hgb 11.4 L 11.3 L (13.0-17.5) gm/dL Hct 35.1 L 34.3 L (39.0-53.0) % MCV 111.3 H 110.0 H (80.0-100.0) fL MCH 36.0 H 36.4 H (25.0-35.0) pg Plt Count 85 L 81 L (150-450) k/uL Lymphocytes # 0.3 L 0.4 L (1.0-4.8) k/uL Chloride 113 H (98-107) mmol/L Carbon Dioxide 19 L (22-30) mmol/L BUN 22 H (9-20) mg/dL Glucose 104 H (74-99) mg/dL Calcium 8.0 L (8.4-10.2) mg/dL Assessment and Plan (1) GI bleed Current Visit: Yes Status: Acute Code(s): K92.2 - GASTROINTESTINAL HEMORRHAGE, UNSPECIFIED SNOMED Code(s): 98101820 (2) Esophageal varices Current Visit: No Status: Acute Code(s): I85.00 - ESOPHAGEAL VARICES WITHOUT BLEEDING SNOMED Code(s): 41028630 (3) Alcoholic cirrhosis of liver Current Visit: Yes Status: Chronic Code(s): K70.30 - ALCOHOLIC CIRRHOSIS OF LIVER WITHOUT ASCITES SNOMED Code(s): 541501433 (4) Hepatitis C virus infection cured after antiviral drug therapy Current Visit: Yes Status: Resolved Code(s): Z86.19 - PERSONAL HISTORY OF OTHER INFECTIOUS AND PARASITIC DISEASES SNOMED Code(s): 866258361 (5) Thrombocytopenia Current Visit: Yes Status: Acute Code(s): D69.6 - THROMBOCYTOPENIA, UNSPECIFIED SNOMED Code(s): 115623916 Plan: 1. Agreeable for discharge. Follow-up in office in 2-3 weeks. Resume home medications. Diet as tolerated. Assessment and plan a care discussed with Dr. Cho
--- NOTE | 2017-09-01 10:48 | DS ---
DISCHARGE SUMMARY DATE OF SERVICE: 09/01/2017 A 61-year-old white male, date of 1955. NEW DATA: Patient is FULL CODE. He is a 5 feet 9 inches height, weight 72.72 kg, BSA 1.88 meter square, BMI 23.7 kg/ meter square. No known allergies. The patient admitted on the date of August 29, 2017 through the emergency room by the ER physician and the nurse practitioner, her name is Joanna Austin, nurse practitioner with the disposition, GI bleeding on August 29. The patient admitted with history and physical was done on August [address] Aviles. He was on-call for the weekend coverage and he did do the history and physical at that time with the impression: 1. Likely gastrointestinal bleeding, upper gastrointestinal bleeding, with melenic stool and blood loss anemia with underlying esophageal varices. 2. He had history of previous upper gastrointestinal bleeding with history of alcoholic cirrhosis and hepatitis C in the past. 3. Chronic renal failure, stage 3. 4. Thrombocytopenia secondary to liver cirrhosis. 5. Coronary artery disease by the history. 6. Ventral hernia. 7. Sinus bradycardia due to the beta blockers. 8. Moderate protein malnutrition with a low albumin 2.8 and actually due to his liver cirrhosis. Patient on discharge today will be discharged today in stable general condition after clearance from Dr. Cho with the final diagnoses: 1. Upper gastrointestinal bleeding secondary to large mid and distal esophageal varices. 2. Status post variceal ligation. 3. Severe portal hypertension gastropathy. #. 4. History of liver cirrhosis with the underlying thrombocytopenia. 5. History of ascites secondary to portal hypertension and liver cirrhosis. 6. Chronic alcoholic liver cirrhosis. HOSPITAL COURSE: The patient admitted through the emergency room with GI bleeding. He had GI bleeding secondary to the esophageal varices bleeding. The patient taken to the scope suite by Dr. Cho for EGD and esophageal ligation, which was done on the 31 of August. With the very large esophageal varices in mid and distal esophagus with stigmata of recent bleeding but no active bleeding at the time. Esophageal variceal ligation equipment was introduced at the tip of the scope and the esophagus intubated without any difficulty and gradually advanced to the distal esophagus with the use of the suction total of 4 band has been deployed in the distal esophagus of the varices. Patient tolerated the procedure well. On today as he scott, [id number] exam, is vital signs indicating temperature 97.6, pulse 62, respiratory rate 16, blood pressure is 133/61. His HEENT was negative and neck was supple. Chest was clear to auscultation and percussion. The heart was regular sinus rhythm and his pulse rate was normal. His pulse ox also is 97. The abdomen has ascites with the underlying chronic alcoholic liver cirrhosis. Extremities no edema and positive perfusion. There is spider angiomatous was scattered and the liver not palpated well with the presence of the ascites. With laboratory today indicating white count 5.7, hemoglobin 13.3, hematocrit is 34.3. He had macrocytosis secondary to the above and his electrolytes showed sodium 141, potassium 4.1, chloride 113, and carbon dioxide 19, with the BUN of 22, creatinine 1.5, estimated glomerular filtration rate more than 60, and glucose 104, calcium 8. As patient is stable general condition will be followed this week in 3 to 4 days and meanwhile that he will continue his home medication and advised to bring all the medicine with him in a bag so we can review that again and will be discharged today if cleared from the GI post ligation of the varices. MMODL / IJN: [id number] /
[2017-09-01 11:43] VITALS: BP 129/75; PULSE 58
[2017-09-01] MEDS: PYRIDOXINE 50 MG TAB PO SCH (11:43)
[2017-09-01] MEDS: CYANOCOBALAMIN 500 MCG TAB PO SCH (11:43)
[2017-09-01] MEDS: FOLIC ACID 1 MG TAB PO SCH (11:43)
[2017-09-01] MEDS: THIAMINE 100 MG TAB PO SCH (11:43)
[2017-09-01] MEDS ORDERED: MULTIVITAMINS, THERA 1 EACH TAB PO SCH (12:00)
[2017-09-01] MEDS ORDERED: FUROSEMIDE 40 MG TAB PO SCH (12:30)
--- NOTE | 2017-09-03 09:03 | CDI ---
Last Revision, July 2017 Documentation Clarification Form Date: 09/03/2017 8:53:00 AM From: Alexa Izquierdo Admit Date: 08/29/2017 7:17:00 PM Patient Name: Bulmaro Jhaveri Visit Number: [id number] Discharge Date: 09/01/17 ATTENTION: The Clinical Documentation Specialists (CDI) and [facility] Coding Staff appreciate your assistance in clarifying documentation. Please respond to the clarification below the line at the bottom and electronically sign. The CDI & [facility] Coding staff will review the response and follow-up if needed. Please note: Queries are made part of the Legal Health Record. If you have any questions, please contact the author of this message via ITS. Dr. Rikki Aviles A diagnosis of blood loss anemia lacks specificity to accurately reflect your patients severity of condition and clarification is needed. History/Risk Factors:alcoholic cirrhosis w esophageal varices bleeding , hepatitis C, portal hypertension gastropathy Clinical indicators: GI bleeding Hemoglobin: 12.5/11.1/10.5/9.8/11.4/11.3 Hematocrit: 37.8/33.8/33.1/30.9/35.1/34.3 Treatment: Type and screen, monitoring labs In order to capture the severity of condition, please clarify the type of anemia and etiology if known: Acute blood loss anemia Acute on chronic blood loss anemia Chronic blood loss anemia Unable to determine Other, please specify _acute blood loss anemia If you have a question about this query, please contact Iqra Toro, Plaster Helper, Jj Fernández at [phone] between 8am and 5pm. Please continue to document in your progress notes and discharge summary in order to capture severity of illness and risk of mortality. Include clinical findings that support your diagnosis. MTDD
== END 2017-09-01 12:29 | disposition home or self-care (01) | DRG 432 ==
LOC: EC 14:31 → 5MS5E 19:17 → 4MS4W 08-30 09:17
PROVIDERS: ADMIT Internal Medicine; ATTEND Internal Medicine
PROC: 0DJ08ZZ Inspection of Upper Intestinal Tract, Via Natural or Artificial Opening Endoscopic (ICD-10-PCS; 2017-08-31)
PROC: 06L38CZ Occlusion of Esophageal Vein with Extraluminal Device, Via Natural or Artificial Opening Endoscopic (ICD-10-PCS; principal; 2017-08-31 07:30)
DX: K70.31 Alcoholic cirrhosis of liver with ascites (principal); I85.11 Secondary esophageal varices with bleeding; K76.6 Portal hypertension; D69.59 Other secondary thrombocytopenia; E44.0 Moderate protein-calorie malnutrition; N18.3 Chronic kidney disease, stage 3 (moderate); D62 Acute posthemorrhagic anemia; E86.0 Dehydration; I95.81 Postprocedural hypotension; B18.2 Chronic viral hepatitis C; K31.89 Other diseases of stomach and duodenum; D50.0 Iron deficiency anemia secondary to blood loss (chronic); G89.29 Other chronic pain; K42.9 Umbilical hernia without obstruction or gangrene; K44.9 Diaphragmatic hernia without obstruction or gangrene; K21.9 Gastro-esophageal reflux disease without esophagitis; F17.210 Nicotine dependence, cigarettes, uncomplicated; K43.9 Ventral hernia without obstruction or gangrene; I25.10 Atherosclerotic heart disease of native coronary artery without angina pectoris; I25.2 Old myocardial infarction; Z68.23 Body mass index [BMI] 23.0-23.9, adult; Z79.899 Other long term (current) drug therapy
CPT/HCPCS: 36415; 43255; 80048; 80053; 82140; 82272; 82550; 82553; 84484; 85025; 85027; 85610; 85730; 86850; 86900; 86901; 93005; 96374; 99285

== ENCOUNTER 2017-09-21 08:09 | Day surgery (SDC) | payer MEDICARE, OTHER ==
--- NOTE | 2017-09-21 10:55 | US ---
Discontinued paracentesis. DATE OF EXAM: 09/21/2017 CLINICAL HISTORY: Ascites No sizable fluid was available for percutaneous drainage. Procedure was deferred. IMPRESSION: No sizable fluid collection for percutaneous drainage.
--- NOTE | 2017-09-21 11:02 | US ---
EXAMINATION TYPE: US abdomen complete DATE OF EXAM: 09/21/2017 COMPARISON: 03/10/2017 CLINICAL HISTORY: ASCITES R18.8. EXAM MEASUREMENTS: Liver Length: 20.0 cm Gallbladder Wall: 0.3 cm CBD: 0.3 cm Spleen: 13.9 cm Right Kidney: 10.1 x 3.8 x 4.9 cm Left Kidney: 9.1 x 3.7 x 4.5 cm Mild ascites. Pancreas: dilated duct at 3mm, mostly obscured by bowel gas Liver: heterogeneous with what appears to be multiple masses, largest measuring 5.7 x 6.0 x x.1cm, t here is a hypoechoic mass with internal echogenic foci of unknown etiology measuring 3.4 x 2.8 x 3.3c m, flow appears to be hepatopetal, hepatomegaly Gallbladder: unable to turn to sagittal view, suspect a contracted gallbladder with gallstones. , wa ll upper limits of normal in size Evidence for sonographic Porter's sign: no CBD: wnl Spleen: splenomegaly Right Kidney: Inferior pole obscured by bowel gas, limited visualization Left Kidney: No hydronephrosis or masses seen Upper IVC: minimal visualization Abd Aorta: only able to visualize small proximal portion, mostly obscured by overlying bowel gas IMPRESSION: 1. Splenomegaly 2. Pancreas is obscured by overlying bowel gas 3. Liver is heterogeneous with multiple masses noted the largest measuring 6 cm 3. Gallbladder appears contracted and limited. Suspect a contracted gallbladder with gallstones...
== END 2017-09-21 09:30 | disposition home or self-care (01) ==
LOC: RADPROMAIN 08:09
PROVIDERS: ATTEND Internal Medicine
DX: R18.8 Other ascites (principal); R16.1 Splenomegaly, not elsewhere classified; R16.0 Hepatomegaly, not elsewhere classified; Z53.8 Procedure and treatment not carried out for other reasons
CPT/HCPCS: 76700; 76705

== ENCOUNTER → 2017-09-23 | Outpatient (CLI) | payer MEDICARE, OTHER ==
[2017-09-23 16:07] LABS: Ammonia <9 umol/L (<30)
[2017-09-23 16:51] LABS: Basophils % (A) 0 %; Eosinophils # (A) 0.1 k/uL (0-0.7); Eosinophils % (A) 2 %; HCT 35.5 % (39.0-53.0); HGB 11.3 gm/dL (13.0-17.5); Lymphocytes # (A) 0.3 k/uL (1.0-4.8); Lymphocytes % (A) 5 %; MCHC 31.8 g/dL (31.0-37.0); Macrocytosis Marked; Mean Platelet Volume 7.9; Monocytes # (A) 0.6 k/uL (0-1.0); Monocytes % (A) 9 %; Neutrophils # (A) 5.4 k/uL (1.3-7.7); Neutrophils % (A) 82 %; RBC 3.23 m/uL (4.30-5.90); WBC 6.6 k/uL (3.8-10.6)
[2017-09-23 16:53] LABS: Platelet Count 92 k/uL (150-450)
[2017-09-23 17:14] LABS: ALT 64 U/L (21-72); AST 166 U/L (17-59); Albumin 3.1 g/dL (3.5-5.0); Alkaline Phosphatase 239 U/L (38-126); Anion Gap 8 mmol/L; Blood Urea Nitrogen 40 mg/dL (9-20); C Reactive Protein 66.9 mg/L (<10.0); Calcium 9.9 mg/dL (8.4-10.2); Carbon Dioxide 27 mmol/L (22-30); Chloride 99 mmol/L (98-107); Creatine Kinase <20 U/L (55-170); Glucose 145 mg/dL (74-99); Magnesium 1.9 mg/dL (1.6-2.3); Phosphorus 2.9 mg/dL (2.5-4.5); Potassium 4.5 mmol/L (3.5-5.1); Sodium 134 mmol/L (137-145); Total Bilirubin 2.8 mg/dL (0.2-1.3); Total Protein 8.1 g/dL (6.3-8.2)
[2017-09-23 21:06] LABS: Erythrocyte Sedimentation Rate 90 mm/hr (0-15)
[2017-09-24 00:56] LABS: Alpha Fetoprotein, Tumor Mkr 53.7 ng/mL (0.0-7.9)
[2017-09-24 01:14] LABS: Vitamin D 25 Hydroxy 13.3 ng/mL (30.0-100.0)
[2017-09-24 01:25] LABS: Cancer Antigen 19-9 18.2 U/mL (0.0-34.9)
== END | disposition home or self-care (01) ==
LOC: LABWHC1 15:21
PROVIDERS: ATTEND Internal Medicine
DX: J44.9 Chronic obstructive pulmonary disease, unspecified (principal); E55.9 Vitamin D deficiency, unspecified; K70.9 Alcoholic liver disease, unspecified
CPT/HCPCS: 36415; 80053; 82105; 82140; 82306; 82378; 82550; 83605; 83735; 84100; 84134; 85025; 85652; 86140; 86301

== ENCOUNTER 2017-09-28 14:28 | Inpatient (IN) | payer MEDICARE, OTHER ==
[2017-09-28] MEDS ORDERED: PANTOPRAZOLE 40 MG/10 ML VIAL IVP STA (14:53)
[2017-09-28 15:30] LABS: Hypochromasia Slight; MCH 34.8 pg (25.0-35.0); MCHC 30.3 g/dL (31.0-37.0); Macrocytosis Marked; Mean Platelet Volume 8.5; RBC 1.18 m/uL (4.30-5.90); RDW 15.5 % (11.5-15.5); WBC 5.9 k/uL (3.8-10.6)
[2017-09-28 15:37] LABS: INR 2.9 (<1.2); Prothrombin Time 25.6 sec (9.0-12.0)
[2017-09-28 15:38] LABS: ALT 41 U/L (21-72); AST 69 U/L (17-59); Albumin 1.4 g/dL (3.5-5.0); Alkaline Phosphatase 92 U/L (38-126); Anion Gap 12 mmol/L; Blood Urea Nitrogen 45 mg/dL (9-20); Calcium 6.8 mg/dL (8.4-10.2); Carbon Dioxide 12 mmol/L (22-30); Chloride 116 mmol/L (98-107); Glucose 73 mg/dL (74-99); Magnesium 1.3 mg/dL (1.6-2.3); Sodium 140 mmol/L (137-145); Total Bilirubin 2.9 mg/dL (0.2-1.3); Total Protein 4.3 g/dL (6.3-8.2)
[2017-09-28 15:40] LABS: HCT 13.6 % (39.0-53.0)
[2017-09-28 15:41] LABS: HGB 4.1 gm/dL (13.0-17.5)
--- NOTE | 2017-09-28 15:44 | XR ---
EXAMINATION TYPE: XR chest 1V portable DATE OF EXAM: 09/28/2017 Comparison: 04/16/2015 Clinical History: 62-year-old male pain Findings: Heart normal size. Atherosclerotic arch calcifications. Bony vasculature within normal limits. Mild i nterstitial prominence is unchanged. No consolidation or pleural effusion. Impression: Chronic changes without acute cardiopulmonary process.
[2017-09-28 15:54] LABS: Creatine Kinase <20 U/L (55-170)
[2017-09-28 16:07] LABS: Creatine Kinase MB 0.3 ng/mL (0.0-2.4); Troponin I <0.012 ng/mL (0.000-0.034)
[2017-09-28 16:28] LABS: Band Neutrophils % 3 %; Lymphocytes # (M) 0.41 k/uL (1.0-4.8); Myelocytes # (M) 0.24 k/uL (0); Myelocytes % 4 %; Neutrophils % (M) 82 %; Nucleated Red Blood Cells 0 /100 WBC (0-0); Total Cells Counted 200
[2017-09-28 16:29] LABS: Polychromasia Present; RBC Fragments Present
[2017-09-28 16:30] LABS: Platelet Count 88 k/uL (150-450)
--- NOTE | 2017-09-28 17:08 | ED ---
GI Bleed HPI - General Chief complaint: GI Bleed Stated complaint: vomiting blood, bloody stool Time Seen by Provider: 09/28/17 14:52 Source: patient, RN notes reviewed, old records reviewed Mode of arrival: EMS Limitations: no limitations - History of Present Illness Initial comments: This is a 62-year-old male with a history of cirrhosis hepatitis C and hepatoma who started having coffee-ground emesis last night and dark stools. No abdominal pain he feels weak and dizzy lightheaded no chest pain overt shortness of breath. MD complaint: coffee ground emesis, melena - Related Data Home Medications Medication Instructions Recorded Confirmed Cyanocobalamin [Vitamin B-12] 500 mcg PO DAILY 02/14/15 09/28/17 Folic Acid 1 mg PO DAILY 02/14/15 09/28/17 Multivitamins, Thera [Multivitamin 1 tab PO DAILY 02/14/15 09/28/17 (formulary)] Pyridoxine [Vitamin B-6] 100 mg PO DAILY 02/14/15 09/28/17 Thiamine [Vitamin B-1] 100 mg PO DAILY 02/14/15 09/28/17 Propranolol [Inderal] 5 mg PO DAILY 07/10/15 09/28/17 Spironolactone [Aldactone] 50 mg PO DAILY 07/10/15 09/28/17 Spironolactone [Aldactone] 25 mg PO HS 08/29/17 09/28/17 Furosemide [Lasix] 40 mg PO BID 09/28/17 09/28/17 Lactulose 20 gm PO TID 09/28/17 09/28/17 Allergies Allergy/AdvReac Type Severity Reaction Status Date / Time No Known Allergies Allergy Verified 09/28/17 15:11 Review of Systems ROS Statement: Those systems with pertinent positive or pertinent negative responses have been documented in the HPI. ROS Other: All systems not noted in ROS Statement are negative. Past Medical History Past Medical History: GERD/Reflux, GI Bleed, Liver Disease, Myocardial Infarction ([place]) Additional Past Medical History / Comment(s): Alcoholic CHIRROSIS, ANASARCA, umbilical hernia,SMALL SLIDING HIATAL HERNIA, HX esophageal varies along g, nutritional myopathy and severe protein calorie malnutrition, chronic, cytopenia , hepatitis C, stigmata of chronic liver disease secondary to liver cirrhosis.Pt stated that he uses cane to balance self-gets dizzy when up. Last Myocardial Infarction Date:: 2001 History of Any Multi-Drug Resistant Organisms: None Reported Past Surgical History: Heart Catheterization, Tonsillectomy Additional Past Surgical History / Comment(s): multiple PARACENTESIS, EGD, BAND LIGATION OF ESOPHAGEAL VARICES Past Anesthesia/Blood Transfusion Reactions: No Reported Reaction Past Psychological History: No Psychological Hx Reported, Depression Smoking Status: Current every day smoker Past Alcohol Use History: None Reported Past Drug Use History: None Reported - Past Family History Father Additional Family Medical History / Comment(s): AT AGE 47 FROM [place], SMOKED. Mother Additional Family Medical History / Comment(s): AT AGE 84 HX UNK General Exam - General Exam Comments Initial Comments: This a well-developed asthenic appearing male who is pale he did have several episodes of coffee-ground emesis. Limitations: no limitations General appearance: alert, lethargic Head exam: Present: atraumatic, normocephalic, normal inspection Eye exam: Present: normal appearance, PERRL, EOMI. Absent: scleral icterus, conjunctival injection, periorbital swelling ENT exam: Present: mucous membranes dry Neck exam: Present: normal inspection. Absent: tenderness, meningismus, lymphadenopathy Respiratory exam: Present: normal lung sounds bilaterally. Absent: respiratory distress, wheezes, rales, rhonchi, stridor Cardiovascular Exam: Present: regular rate, normal rhythm, normal heart sounds. Absent: systolic murmur, diastolic murmur, rubs, gallop, clicks GI/Abdominal exam: Present: soft, normal bowel sounds. Absent: distended, tenderness, guarding, rebound, rigid Rectal exam: Present: heme (+) stool, black stool Extremities exam: Present: normal inspection, full ROM, normal capillary refill. Absent: tenderness, pedal edema, joint swelling, calf tenderness Back exam: Present: normal inspection Neurological exam: Present: alert, oriented X3, CN II-XII intact Psychiatric exam: Present: normal affect, normal mood Skin exam: Present: pallor Course Vital Signs 09/28/17 09/28/17 09/28/17 14:38 15:25 16:20 Temperature 98.9 F Pulse Rate 63 61 65 Respiratory 18 18 18 Rate Blood Pressure 113/67 125/59 132/76 O2 Sat by Pulse 100 99 100 Oximetry - Reevaluation(s) Reevaluation #1: 09/28/17 17:28 I did discuss the findings with . Patient will be transfused and admitted for evaluation. Dr. Cho will be consulted as well as Dr. Wallace Reevaluation #2: 09/28/17 17:45 I did discuss findings with patient family members. Patient will be admitted I did discuss case with Dr. Wallace. Patient will be admitted to intensive care unit. Medical Decision Making - Lab Data Result diagrams: 09/28/17 15:15 09/28/17 15:15 Lab Results 09/28/17 09/28/17 09/28/17 Range/Units 15:15 15:15 15:15 WBC 5.9 (3.8-10.6) k/uL RBC 1.18 L (4.30-5.90) m/uL Hgb 4.1 L* D (13.0-17.5) gm/dL Hct 13.6 L* (39.0-53.0) % MCV 115.0 H D (80.0-100.0) fL MCH 34.8 (25.0-35.0) pg MCHC 30.3 L (31.0-37.0) g/dL RDW 15.5 (11.5-15.5) % Plt Count 88 L (150-450) k/uL Neutrophils % (Manual) 82 % Band Neutrophils % 3 % Lymphocytes % (Manual) 7 % Monocytes % (Manual) 5 % Myelocytes % 4 % Neutrophils # (Manual) 5.00 (1.3-7.7) k/uL Lymphocytes # (Manual) 0.41 L (1.0-4.8) k/uL Monocytes # (Manual) 0.30 (0-1.0) k/uL Myelocytes # (Manual) 0.24 H (0) k/uL Nucleated RBCs 0 (0-0) /100 WBC Manual Slide Review Performed Polychromasia Present Hypochromasia Slight Macrocytosis Marked Fragmented RBCs Present PT (9.0-12.0) sec INR (<1.2) APTT (22.0-30.0) sec Sodium 140 (137-145) mmol/L Potassium 4.0 (3.5-5.1) mmol/L Chloride 116 H (98-107) mmol/L Carbon Dioxide 12 L (22-30) mmol/L Anion Gap 12 mmol/L BUN 45 H (9-20) mg/dL Creatinine 1.28 H (0.66-1.25) mg/dL Est GFR (MDRD) Af Amer >60 (>60 ml/min/1.73 sqM) Est GFR (MDRD) Non-Af 57 (>60 ml/min/1.73 sqM) Glucose 73 L (74-99) mg/dL Calcium 6.8 L (8.4-10.2) mg/dL Magnesium 1.3 L (1.6-2.3) mg/dL Total Bilirubin 2.9 H (0.2-1.3) mg/dL AST 69 H (17-59) U/L ALT 41 (21-72) U/L Alkaline Phosphatase 92 (38-126) U/L Total Creatine Kinase <20 L (55-170) U/L CK-MB (CK-2) 0.3 (0.0-2.4) ng/mL CK-MB (CK-2) Rel Index Troponin I <0.012 (0.000-0.034) ng/mL Total Protein 4.3 L (6.3-8.2) g/dL Albumin 1.4 L (3.5-5.0) g/dL Gastric Occult Blood (Negative) Stool Occult Blood (Negative) 09/28/17 09/28/17 09/28/17 Range/Units 15:15 15:15 16:14 WBC (3.8-10.6) k/uL RBC (4.30-5.90) m/uL Hgb (13.0-17.5) gm/dL Hct (39.0-53.0) % MCV (80.0-100.0) fL MCH (25.0-35.0) pg MCHC (31.0-37.0) g/dL RDW (11.5-15.5) % Plt Count (150-450) k/uL Neutrophils % (Manual) % Band Neutrophils % % Lymphocytes % (Manual) % Monocytes % (Manual) % Myelocytes % % Neutrophils # (Manual) (1.3-7.7) k/uL Lymphocytes # (Manual) (1.0-4.8) k/uL Monocytes # (Manual) (0-1.0) k/uL Myelocytes # (Manual) (0) k/uL Nucleated RBCs (0-0) /100 WBC Manual Slide Review Polychromasia Hypochromasia Macrocytosis Fragmented RBCs PT 25.6 H (9.0-12.0) sec INR 2.9 H (<1.2) APTT 48.0 H (22.0-30.0) sec Sodium (137-145) mmol/L Potassium (3.5-5.1) mmol/L Chloride (98-107) mmol/L Carbon Dioxide (22-30) mmol/L Anion Gap mmol/L BUN (9-20) mg/dL Creatinine (0.66-1.25) mg/dL Est GFR (MDRD) Af Amer (>60 ml/min/1.73 sqM) Est GFR (MDRD) Non-Af (>60 ml/min/1.73 sqM) Glucose (74-99) mg/dL Calcium (8.4-10.2) mg/dL Magnesium (1.6-2.3) mg/dL Total Bilirubin (0.2-1.3) mg/dL AST (17-59) U/L ALT (21-72) U/L Alkaline Phosphatase (38-126) U/L Total Creatine Kinase (55-170) U/L CK-MB (CK-2) (0.0-2.4) ng/mL CK-MB (CK-2) Rel Index Troponin I (0.000-0.034) ng/mL Total Protein (6.3-8.2) g/dL Albumin (3.5-5.0) g/dL Gastric Occult Blood Positive (Negative) Stool Occult Blood Positive (Negative) - EKG Data -: EKG Interpreted by Tx EKG shows normal: sinus rhythm, axis, intervals, QRS complexes, ST-T waves ( Normal sinus rhythm rate 64. Interval 172 QRS 72 QT since QTC of 420/433 st-t wave changes) Rate: normal Critical Care Time Critical Care Time: Yes Critical Care Time: 39 minutes of critical care time which includes initial monitoring the EMS call discussed with paramedics history physical labs x-rays reevaluation the patient several occasions discussion with the patient's attending as well as with intensive care and GI. Documentation of the above. Disposition Clinical Impression: Melena, Anemia, GI bleed, Alcoholic cirrhosis of liver, Coffee ground emesis Disposition: ADMITTED IP TO THIS HOSP Condition: Serious Referrals: Adis Norton MD [Primary Care Provider] - 1-2 days
[2017-09-28] MEDS ORDERED: NALOXONE 0.4 MG/ML 1 ML VIAL IV PRN (17:49)
[2017-09-28] MEDS ORDERED: MORPHINE SULFATE 4 MG/ML SYRINGE IV PRN (18:04)
[2017-09-28] MEDS ORDERED: ONDANSETRON 4 MG/2 ML VIAL IVP STA (18:21)
[2017-09-28] MEDS: SODIUM CHLORIDE 0.9% 1,000 ML IV SCH (18:50)
--- NOTE | 2017-09-28 20:11 | P.HPIM ---
History of Present Illness H&P Date: 09/28/17 Chief Complaint: GI bleeding history and physical dictated number of dictation [id number]. Date of dictation 07/2018. Assessment: Acute GI bleeding probably secondary to varicose veins which has been his recent recently ligated with a recurrence. Anemia secondary to blood loss with a hemoglobin 4.1. Alcoholic liver cirrhosis. Rule out mass in the liver. Rule out hepatoma. Contracted gallbladder with hyperbilirubinemia with the underlying gallbladder lithiasis versus dyskinesia. Hepatitis C has been treated. Protein calorie deficiency moderate probably secondary to cirrhosis of the liver. Vitamin D deficiency/insufficiency. Plan: #[address] Najera critical care #[address] Shania Barber gastroenterology. #3 stabilization in the ICU with the blood transfusion. Foster procedure for controlling the bleeding. Gastroenterology. Past Medical History Past Medical History: GERD/Reflux, GI Bleed, Liver Disease, Myocardial Infarction ([place]) Additional Past Medical History / Comment(s): Alcoholic CHIRROSIS, ANASARCA, umbilical hernia,SMALL SLIDING HIATAL HERNIA, HX esophageal varies along g, nutritional myopathy and severe protein calorie malnutrition, chronic, cytopenia , hepatitis C, stigmata of chronic liver disease secondary to liver cirrhosis.Pt stated that he uses cane to balance self-gets dizzy when up. Last Myocardial Infarction Date:: 2001 History of Any Multi-Drug Resistant Organisms: None Reported Past Surgical History: Heart Catheterization, Tonsillectomy Additional Past Surgical History / Comment(s): multiple PARACENTESIS, EGD, BAND LIGATION OF ESOPHAGEAL VARICES Past Anesthesia/Blood Transfusion Reactions: No Reported Reaction Past Psychological History: No Psychological Hx Reported, Depression Smoking Status: Current every day smoker Past Alcohol Use History: None Reported Past Drug Use History: None Reported - Past Family History Father Additional Family Medical History / Comment(s): AT AGE 47 FROM [place], SMOKED. Mother Additional Family Medical History / Comment(s): AT AGE 84 HX UNK Medications and Allergies Home Medications Medication Instructions Recorded Confirmed Type Cyanocobalamin [Vitamin B-12] 500 mcg PO DAILY 02/14/15 09/28/17 History Folic Acid 1 mg PO DAILY 02/14/15 09/28/17 History Multivitamins, Thera [Multivitamin 1 tab PO DAILY 02/14/15 09/28/17 History (formulary)] Pyridoxine [Vitamin B-6] 100 mg PO DAILY 02/14/15 09/28/17 History Thiamine [Vitamin B-1] 100 mg PO DAILY 02/14/15 09/28/17 History Propranolol [Inderal] 5 mg PO DAILY 07/10/15 09/28/17 History Spironolactone [Aldactone] 50 mg PO DAILY 07/10/15 09/28/17 History Spironolactone [Aldactone] 25 mg PO HS 08/29/17 09/28/17 History Furosemide [Lasix] 40 mg PO BID 09/28/17 09/28/17 History Lactulose 20 gm PO TID 09/28/17 09/28/17 History Allergies Allergy/AdvReac Type Severity Reaction Status Date / Time No Known Allergies Allergy Verified 09/28/17 15:11 Physical Exam Vitals: Vital Signs Temp Pulse Resp BP Pulse Ox 09/28/17 19:58 95.6 F L 66 18 131/60 100 09/28/17 19:48 95.5 F L 73 18 128/61 100 09/28/17 19:13 73 18 144/74 100 09/28/17 18:07 62 18 144/80 100 09/28/17 17:00 66 18 133/76 100 09/28/17 16:20 65 18 132/76 100 09/28/17 15:25 61 18 125/59 99 09/28/17 14:38 98.9 F 63 18 113/67 100 Intake and Output 09/28/17 09/28/17 09/28/17 06:59 14:59 22:59 Intake Total 0 Balance 0 Intake: Blood Product 0 Rc As-1 Unit 0 [id number] Other: Weight 72.575 kg Patient Weight 09/29/17 06:59 Weight 72.575 kg Results CBC & Chem 7: 09/28/17 15:15 09/28/17 15:15 Labs: Abnormal Lab Results - Last 24 Hours (Table) 09/28/17 09/28/17 09/28/17 Range/Units 15:15 15:15 15:15 RBC 1.18 L (4.30-5.90) m/uL Hgb 4.1 L* D (13.0-17.5) gm/dL Hct 13.6 L* (39.0-53.0) % MCV 115.0 H D (80.0-100.0) fL MCHC 30.3 L (31.0-37.0) g/dL Plt Count 88 L (150-450) k/uL Lymphocytes # (Manual) 0.41 L (1.0-4.8) k/uL Myelocytes # (Manual) 0.24 H (0) k/uL PT (9.0-12.0) sec INR (<1.2) APTT (22.0-30.0) sec Chloride 116 H (98-107) mmol/L Carbon Dioxide 12 L (22-30) mmol/L BUN 45 H (9-20) mg/dL Creatinine 1.28 H (0.66-1.25) mg/dL Glucose 73 L (74-99) mg/dL Calcium 6.8 L (8.4-10.2) mg/dL Magnesium 1.3 L (1.6-2.3) mg/dL Total Bilirubin 2.9 H (0.2-1.3) mg/dL AST 69 H (17-59) U/L Total Creatine Kinase <20 L (55-170) U/L Total Protein 4.3 L (6.3-8.2) g/dL Albumin 1.4 L (3.5-5.0) g/dL Crossmatch 09/28/17 09/28/17 Range/Units 15:15 15:15 RBC (4.30-5.90) m/uL Hgb (13.0-17.5) gm/dL Hct (39.0-53.0) % MCV (80.0-100.0) fL MCHC (31.0-37.0) g/dL Plt Count (150-450) k/uL Lymphocytes # (Manual) (1.0-4.8) k/uL Myelocytes # (Manual) (0) k/uL PT 25.6 H (9.0-12.0) sec INR 2.9 H (<1.2) APTT 48.0 H (22.0-30.0) sec Chloride (98-107) mmol/L Carbon Dioxide (22-30) mmol/L BUN (9-20) mg/dL Creatinine (0.66-1.25) mg/dL Glucose (74-99) mg/dL Calcium (8.4-10.2) mg/dL Magnesium (1.6-2.3) mg/dL Total Bilirubin (0.2-1.3) mg/dL AST (17-59) U/L Total Creatine Kinase (55-170) U/L Total Protein (6.3-8.2) g/dL Albumin (3.5-5.0) g/dL Crossmatch See Detail
--- NOTE | 2017-09-28 21:34 | CT ---
EXAMINATION TYPE: CT abdomen wo con DATE OF EXAM: 09/28/2017 COMPARISON: 09/05/2016 HISTORY: Suspect liver CA. Abdominal pain Automated exposure control for dose reduction was used. TECHNIQUE: Helical acquisition of images was performed from the lung bases through the top of iliac crest to include entire abdomen. CONTRAST: Performed without Oral Contrast and without IV contrast. FINDINGS: Lung bases are clear. There is no pleural effusion. Heart size is normal. There is mild to moderate ascites fluid in the abdomen. Liver is irregular consistent with cirrhosis. I see no focal liver defect. There are multiple calcified gallstones. Spleen appears normal. There i s no pancreatic mass. Bile ducts are not dilated. There is no adrenal mass. Kidneys of normal size and contour. There is no hydronephrosis. There is no retroperitoneal adenopathy. Abdominal aorta is atheromatous. I see no intestinal wall thickening. Th ere are no dilated loops. There is no sign of free air. There is umbilical hernia that contains fat. This measures 4 x 2.5 cm. IMPRESSION: CHANGES IN THE LIVER CONSISTENT WITH CIRRHOSIS WITHOUT CHANGE COMPARED TO OLD EXAM. STABLE MILD TO MO DERATE ASCITES FLUID. MULTIPLE CALCIFIED GALLSTONES. STABLE UMBILICAL HERNIA. THERE ARE SOME SCLEROTIC CHANGES IN THE FEMORAL HEADS THAT COULD RELATE TO AVASCULAR NECROSIS. THERE IS STABLE MILD 10% COMPRESSION DEFORMITY OF L2 AND L5.
--- NOTE | 2017-09-28 21:48 | HP ---
HISTORY AND PHYSICAL He is a 62-year-old white male. He will be admitted to the ICU. The patient was seen and evaluated in the module 16 at [facility] on the date of 09/28/17. New. NEW DATA: Is a FULL CODE. He is 5 foot 9 inches, weight 72.57 kg. BSA 1.88 m2, BMI 23.6 kg/m2. His . Allergy is unknown. CHIEF COMPLAINT: Patient presented to the emergent emergency room brought by his ex- as he called her because he was vomiting blood and having bloody bowel movement. HISTORY OF PRESENT ILLNESS: Mr. Bulmaro Jhaveri, who as he is well known, with underlying history of GI bleeding. He has been recently admitted to the hospital and Dr. Cho did do tying his varicose veins in the stomach with the underlying upper GI bleeding secondary to significant varicosities. She did at that time, 3 of them and he did well and went home subsequently. Currently on this admission, he has felt last night feeling sick stomach. Then subsequently by 3:00 am he wake up with vomiting, bloody vomiting, never stops subsequently and the bowel movement is red, black as well. He called his ex- who came and picked him up, brought him to the hospital and where they did laboratories, found that his hemoglobin in the laboratory is 4.1 and hematocrit is 13.6. His platelet count 88, and his band 3% and his critical value. Patient seen in the ER by Dr. Riley and subsequently he did call me and called Dr. Wallace for the ICU and to monitor the patient as well as Dr. Shania Cho, spiral tube winder helper for evaluation and treatment. They did order the blood transfusion for 2 units. However, the lab called and found that he had delta antibodies with a history of past history of hepatitis C, which he has been treated from it and cleared. They could not get no blood available with no antibodies and because of his consideration at this time with the low hemoglobin, will transfuse him and will be the Benadryl and Solu-Medrol as well as the pantoprazole will be on board. The patient found also that he has his INR is 2.9 with prolongation of the pro-time, sodium and potassium was normal. His chloride 116, carbon dioxide 12 with metabolic acidosis. His anion gap is 20 and his blood sugar 73. His creatinine 1.28 and BUN of 45 with the underlying acute kidney disease or acute kidney injury. His underlying previous laboratory number that he has indicating that in the office, he had 3 albumin less than 5. His AFP tumor marker 53.7 and a vitamin D 13.3. He supposedly next week having MRI of the abdomen with suspicious of a mass on the liver. However, as he is in the hospital, we will do a CT scan of the abdomen without contrast and he had recently on March 10, 2017 he had alcoholic liver disease and they said that he had hyperechoic right lobe of the liver and they considered liver MRI for hepatoma and gallbladder with the cholelithiasis and contracted. With high bilirubin or from his liver cirrhosis as well and will be underlying hepatic cirrhosis. We sent him for ascitic fluid removal and they was found that he has any ascites but was indicator of there is questionable mass in the liver was done at [facility]. He has echocardiogram also in the past and that showed ejection fraction 60-65% and his mild mitral regurgitation. No evidence of pulmonary hypertension. He had a macrocytosis because of alcoholic liver disease. On continuation of the lab: His troponin that done in the ER was less than 0.012, which is normal and albumin is 1.4 with a protein 4.3 with the underlying protein calorie disorder secondary to liver cirrhosis. Moderate. In the emergency room as well they did a vital sign and vital sign was temperature 98.9, pulse 73, respiratory rate 18, blood pressure 144/74 with a mean 97. He is on nasal cannula 100%, saturation on 2 L. He had a chest x-ray in the ER and chest x-ray was indicating chronic changes without acute cardiopulmonary process. in the ER, Dr. Adam Riley signed him off with the underlying melena, anemia, GI bleeding, alcoholic liver cirrhosis, and coffee-grounds emesis. His EKG was normal. PAST MEDICAL HISTORY: In his social history, he is having only 1 daughter living in [place], [place] and he probably twice. The 2nd that came to help him. He is a chronic smoker. However, he tried to quit. He has underlying COPD. He currently lives alone. Has a past history of alcohol intake and smoked marijuana in the past and also other drugs not within the last 20 years. He had a past history of hepatitis C which was treated with Hervona and laboratory payne cured, but he has a liver cirrhosis with a history of recent ultrasound was suspicious of mass in the liver. He is currently or legal separation. Other past medical history include alcoholic liver cirrhosis with bursitis, bradycardia, chronic kidney disease stage 3, status post viral hepatitis C and benign prostatic hypertrophy. Hepatomegaly and splenomegaly and protein calorie deficiency, moderate umbilical hernia, vitamin D deficiency, history of portal hypertension and GI bleeding, recurrent. His current home medication: He was on Aldactone 25 mg twice a day, folic acid 1 mg once a day. Lactulose 10 g 15 mL 3 times a day and furosemide 40 mg once 1 tablet twice a day. Propranolol half a tablet once a day. Vitamin B6 100 mg once a day. Vitamin B12 5 mcg tab with daily, vitamin B1 100 mg a day and multivitamin. He has not had any previous heart attack or pacemaker. Last visit was in September,, in the office and he was absolutely comfortable except for the liver and distention and we scheduled him for an MRI to be done next week with the underlying hyperbilirubinemia and cholelithiasis and probably contracted gallbladder. On the reviewing of the system: Neuropsychiatry negative. No history of stroke or vasovagal attack now. No cough or expectoration on the respiratory. In the heart, no hypertension and no irregularities. GI: History of recurrent GI bleeding with portal hypertension and varicose veins. Abdomen and GI: Questionable currently is underlying contracted gallbladder and cholelithiasis as well as tumor mass in the liver with splenomegaly. Underlying hiatal hernia and he uses a wrap or brace on the waist. : No symptoms although he has benign prostatic hypertrophy. Musculoskeletal generalized weakness with the drop of hemoglobin and just overnight and dropped significantly to 4.1. Loss of muscle mass. Cachectic. PHYSICAL EXAMINATION: As of today as mentioned above vital sign temperature 98.9 orally pulse 73, respiratory rate 18, blood pressure 144/74, mean is 97 and he is on 2 L nasal cannula is 100%. His HEENT he is slim and pupils equal, reactive. There is a tinge of jaundice and pupils equal reactive and ocular muscle movement is intact. Oropharynx was negative, especially pale in color with loss of blood and campos of vomiting blood on the teeth, lower teeth and upper teeth. The neck was supple. No JVD. No thyromegaly. No lymphadenopathy. No in the neck or the axilla. The chest was increased anteroposterior diameter with spider nevi and the also spider nevi on the nose with the underlying liver cirrhosis. He had palmar erythema on the hands bilaterally and the heart was regular sinus rhythm and the lung was clear. No evidence of dullness. Abdomen: Positive epigastric tenderness and on the right upper quadrant with enlarged liver and could not palpate the spleen. He had an umbilical hernia and reducible. No suprapubic tenderness. He has lower extremity loss of muscle mass and positive pulses bilaterally and no clubbing. No cyanosis. Neurological examination was intact. He is not confused at this time. However, we will obtain also the ammonia level and lactic acid level. ASSESSMENT: 1. Acute gastrointestinal bleeding, probably secondary to varicosities. 2. Blood loss with severe anemia with hemoglobin 4.1. 3. Protein calorie deficiency and has moderate associated with the liver cirrhosis. 4. Liver cirrhosis, alcoholic type. 5. Thrombocytopenia. 6. Underlying chronic kidney disease stage III. 7. Hyperbilirubinemia. 8. Gallbladder disease with contracted possible cholelithiasis. 9. Prolonged PT, PTT, and INR with prolonged INR secondary to the liver cirrhosis. PLAN: We will be planning a type and crossmatch and transfuse 2 units and the and H2 blockers and as well as Solu-Medrol if there is a reaction to the blood transfusion. Admission to ICU. Consultation with critical care, Dr. Wallace. Consultation with Dr. Cho, Gastroenterology for further evaluation and endoscopy if needed. Will do a CT scan of the abdomen to evaluate the liver mass or contracted gallbladder and hepatomegaly. Further treatment depend on the patient's condition. Currently prognosis is guarded. I did talk to him and his ex- in the modules 16 in the emergency room. MMODL / IJN: [id number] /
[2017-09-29 08:27] LABS: Anisocytosis Slight; Basophils # (A) 0.1 k/uL (0-0.2); Basophils % (A) 0 %; Eosinophils % (A) 0 %; Hypochromasia Marked; Lymphocytes # (A) 0.9 k/uL (1.0-4.8); Lymphocytes % (A) 6 %; MCH 33.8 pg (25.0-35.0); Macrocytosis Marked; Monocytes # (A) 1.1 k/uL (0-1.0); Monocytes % (A) 7 %; Neutrophils # (A) 12.7 k/uL (1.3-7.7); Neutrophils % (A) 85 %; Platelet Count 102 k/uL (150-450); RBC 2.65 m/uL (4.30-5.90); RDW 19.6 % (11.5-15.5)
[2017-09-29 08:32] LABS: MCV 109.1 fL (80.0-100.0)
[2017-09-29 08:38] LABS: Calcium 9.7 mg/dL (8.4-10.2)
[2017-09-29 08:43] LABS: Potassium 7.1 mmol/L (3.5-5.1)
[2017-09-29] MEDS ORDERED: SODIUM POLYSTYRENE SULFONATE 15 GM/60 ML BOTTLE PO ONE (09:16)
[2017-09-29] MEDS ORDERED: CALCIUM GLUCONATE 1,000 MG in SODIUM CHLORIDE 0.9% 100 ML IVPB ONE ×2 (09:30→17:30)
[2017-09-29] MEDS: PANTOPRAZOLE 40 MG/10 ML VIAL IV SCH ×4 (09:37→22:54)
[2017-09-29] MEDS: SODIUM CHLORIDE 0.9% 1,000 ML IV SCH ×2 (09:59→17:24)
[2017-09-29 11:34] LABS: INR 2.7 (<1.2); Prothrombin Time 24.6 sec (9.0-12.0)
[2017-09-29] MEDS ORDERED: LEVOFLOXACIN 500MG-D5W PMX 500 MG in DEXTROSE/WATER 1 100ML.BAG IVPB SCH (11:45)
--- NOTE | 2017-09-29 12:04 | P.CONS ---
History of Present Illness - Reason for Consult Consult date: 09/29/17 Hematemesis melena GI bleed Requesting physician: Adis Norton - Chief Complaint Hematemesis - History of Present Illness 62-year-old gentleman patient of Dr. Norton with a history of alcohol cirrhosis , hepatitis C status post antiviral treatment, esophageal varices diagnosed June 2017, recent GI bleed August 2017, nicotine cigarette dependency, marijuana, NC, CAD, portal hypertension, ascites/paracentesis, GERD. Patient admitted with acute hematemesis and melena. Patient called his ex- to bring him to the hospital. He had multiple episodes of hematemesis and melena prior to admission. No recurrence of bleeding since yesterday. Denies active alcohol consumption. Admission hemoglobin 4.1. Received 2 units of blood current hemoglobin 9.0. MCV 109. Platelet 102. INR 2.9 presently 2.7. Ammonia 21. Stool had an gastric occult positive. Afebrile. Reports mild midepigastric midabdominal discomfort. Admission creatinine 1.2 presently 3.0. BUN 45 presently 93. Total bilirubin 2.9. AST 69. ALT 41. Potassium 4.0 on admission presently 7.1; nephrology has been consulted. Patient was hospitalized last month with upper GI bleed underwent EGD evaluation with findings of distal esophageal varices, portal gastropathy status post variceal band ligation. At that time patient's lowest hemoglobin was in the 9 range. Home medications include but not limited to Aldactone Inderal lactulose Lasix. CT abdomen and pelvis reported changes in the liver consistent with cirrhosis unchanged from previous exam with whaw-ns-xefzzric ascites. Multiple gallstones. Review of Systems Constitutional: Denies fever, chills, sweats, weight gain, or loss. HEENT: Negative for migraines, blurred vision or loss, earaches, drainage, tinnitus, oral mucosal lesions, dysphagia, or odynophagia. Cardiac: NC. CAD. Negative for chest pain, arrhythmias, or palpitation. Respiratory: Nicotine cigarette dependency. Negative for shortness of breath, hemoptysis, cough, or sputum production. Gastrointestinal: See HPI for pertinent findings. Genitourinary: Negative for hematuria, urgency, frequency, polyuria, dysuria, or penile discharge. Musculoskeletal: Negative for muscle aches, swelling, arthritis, and arthralgias. Neurologic: Negative for stroke or TIA. Endocrine: Negative for thyroid problems. Skin: Negative for rash or itching. Psychiatric: Negative history for depression and anxiety Past Medical History Past Medical History: GERD/Reflux, GI Bleed, Liver Disease, Myocardial Infarction ([place]), Renal Disease Additional Past Medical History / Comment(s): Pt has not drank alcohol in 4 years, alcoholic CHIRROSIS, ascities, esophageal varicies with banding, portal htn gastropathy, ventral hernia, SMALL SLIDING HIATAL HERNIA, nutritional myopathy and severe protein calorie malnutrition, chronic thrombocytopenia, hepatitis C, stigmata of chronic liver disease secondary to liver cirrhosis, renal disease stage III, vertigo when getting up. Last Myocardial Infarction Date:: 2001 History of Any Multi-Drug Resistant Organisms: None Reported Past Surgical History: Heart Catheterization, Tonsillectomy Additional Past Surgical History / Comment(s): multiple PARACENTESIS, EGDs, BAND LIGATION OF ESOPHAGEAL VARICES Past Anesthesia/Blood Transfusion Reactions: No Reported Reaction Smoking Status: Never smoker - Past Family History Father Additional Family Medical History / Comment(s): AT AGE 47 FROM [place], SMOKED. Mother Additional Family Medical History / Comment(s): AT AGE 84 HX UNK Medications and Allergies Home Medications Medication Instructions Recorded Confirmed Type Cyanocobalamin [Vitamin B-12] 500 mcg PO DAILY 02/14/15 09/28/17 History Folic Acid 1 mg PO DAILY 02/14/15 09/28/17 History Multivitamins, Thera [Multivitamin 1 tab PO DAILY 02/14/15 09/28/17 History (formulary)] Pyridoxine [Vitamin B-6] 100 mg PO DAILY 02/14/15 09/28/17 History Thiamine [Vitamin B-1] 100 mg PO DAILY 02/14/15 09/28/17 History Propranolol [Inderal] 5 mg PO DAILY 07/10/15 09/28/17 History Spironolactone [Aldactone] 50 mg PO DAILY 07/10/15 09/28/17 History Spironolactone [Aldactone] 25 mg PO HS 08/29/17 09/28/17 History Furosemide [Lasix] 40 mg PO BID 09/28/17 09/28/17 History Lactulose 20 gm PO TID 09/28/17 09/28/17 History Allergies Allergy/AdvReac Type Severity Reaction Status Date / Time No Known Allergies Allergy Verified 09/28/17 15:11 Physical Exam Vitals: Vital Signs Temp Pulse Resp BP Pulse Ox 09/29/17 10:18 62 16 115/54 100 09/29/17 09:59 62 16 112/52 98 09/29/17 09:00 63 16 129/59 100 09/29/17 08:00 62 16 125/74 100 09/29/17 07:00 64 16 110/53 100 09/29/17 06:00 74 16 117/56 100 09/29/17 05:28 88 18 122/63 100 09/29/17 04:18 78 18 113/66 100 09/29/17 03:47 69 16 121/67 100 09/29/17 01:40 96.8 F L 72 18 145/70 100 09/29/17 00:40 96.9 F L 66 18 139/65 100 09/29/17 00:10 96.8 F L 95 18 128/69 100 09/28/17 23:40 97.0 F L 77 18 140/71 100 09/28/17 23:25 96.9 F L 71 18 126/63 100 09/28/17 23:05 96.8 F L 74 18 132/66 100 09/28/17 22:50 96.8 F L 72 18 130/68 100 09/28/17 21:50 97.6 F 72 18 141/71 09/28/17 21:30 97.0 F L 70 18 138/75 100 09/28/17 21:00 96.7 F L 84 18 138/64 100 09/28/17 20:38 97.0 F L 64 18 138/73 100 09/28/17 20:28 97.0 F L 66 18 144/78 100 09/28/17 20:19 95.7 F L 72 18 134/62 100 09/28/17 20:08 95.6 F L 65 18 133/63 100 09/28/17 19:58 95.6 F L 66 18 131/60 100 09/28/17 19:48 95.5 F L 73 18 128/61 100 09/28/17 19:13 73 18 144/74 100 09/28/17 18:07 62 18 144/80 100 09/28/17 17:00 66 18 133/76 100 09/28/17 16:20 65 18 132/76 100 09/28/17 15:25 61 18 125/59 99 09/28/17 14:38 98.9 F 63 18 113/67 100 Intake and Output 09/28/17 09/29/17 09/29/17 22:59 06:59 14:59 Intake Total 310 310 Balance 310 310 Intake: Blood Product 310 310 Rc As-1 Unit 0 310 [id number] Rc As-1 Unit 310 [id number] General appearance: The patient is alert, oriented, in no acute distress. Visibly weak, pale, overall cachectic appearance. HET: Head is normocephalic and atraumatic. Pupils are equal and reactive. Oropharynx is clear without lesions. Neck: Supple without lymphadenopathy. Trachea midline. Heart: S1 S2. Regular rate and rhythm. Lungs: No crackles or wheezes are heard. Abdomen: Soft, mild midepigastric tenderness, nondistended with bowel sounds. No peritoneal signs. No palpable organomegaly or masses. Extremities: Normal skin color and turgor. No cyanosis, rash, ulceration, clubbing, or edema. Radial and pedal pulses are 2/4 bilaterally. Neurological: No focal deficits. Strength and sensation are grossly intact. Results CBC & Chem 7: 09/29/17 07:51 09/29/17 07:51 Labs: Abnormal Lab Results - Last 24 Hours (Table) 09/28/17 09/28/17 09/28/17 Range/Units 15:15 15:15 15:15 WBC (3.8-10.6) k/uL RBC 1.18 L (4.30-5.90) m/uL Hgb 4.1 L* D (13.0-17.5) gm/dL Hct 13.6 L* (39.0-53.0) % MCV 115.0 H D (80.0-100.0) fL MCHC 30.3 L (31.0-37.0) g/dL RDW (11.5-15.5) % Plt Count 88 L (150-450) k/uL Neutrophils # (1.3-7.7) k/uL Lymphocytes # (1.0-4.8) k/uL Lymphocytes # (Manual) 0.41 L (1.0-4.8) k/uL Monocytes # (0-1.0) k/uL Myelocytes # (Manual) 0.24 H (0) k/uL PT (9.0-12.0) sec INR (<1.2) APTT (22.0-30.0) sec Potassium (3.5-5.1) mmol/L Chloride 116 H (98-107) mmol/L Carbon Dioxide 12 L (22-30) mmol/L BUN 45 H (9-20) mg/dL Creatinine 1.28 H (0.66-1.25) mg/dL Glucose 73 L (74-99) mg/dL Calcium 6.8 L (8.4-10.2) mg/dL Magnesium 1.3 L (1.6-2.3) mg/dL Total Bilirubin 2.9 H (0.2-1.3) mg/dL AST 69 H (17-59) U/L Total Creatine Kinase <20 L (55-170) U/L Total Protein 4.3 L (6.3-8.2) g/dL Albumin 1.4 L (3.5-5.0) g/dL Crossmatch 09/28/17 09/28/17 09/29/17 Range/Units 15:15 15:15 07:51 WBC 15.0 H (3.8-10.6) k/uL RBC 2.65 L (4.30-5.90) m/uL Hgb 9.0 L D (13.0-17.5) gm/dL Hct 29.0 L (39.0-53.0) % MCV 109.1 H D (80.0-100.0) fL MCHC (31.0-37.0) g/dL RDW 19.6 H (11.5-15.5) % Plt Count 102 L (150-450) k/uL Neutrophils # 12.7 H (1.3-7.7) k/uL Lymphocytes # 0.9 L (1.0-4.8) k/uL Lymphocytes # (Manual) (1.0-4.8) k/uL Monocytes # 1.1 H (0-1.0) k/uL Myelocytes # (Manual) (0) k/uL PT 25.6 H (9.0-12.0) sec INR 2.9 H (<1.2) APTT 48.0 H (22.0-30.0) sec Potassium (3.5-5.1) mmol/L Chloride (98-107) mmol/L Carbon Dioxide (22-30) mmol/L BUN (9-20) mg/dL Creatinine (0.66-1.25) mg/dL Glucose (74-99) mg/dL Calcium (8.4-10.2) mg/dL Magnesium (1.6-2.3) mg/dL Total Bilirubin (0.2-1.3) mg/dL AST (17-59) U/L Total Creatine Kinase (55-170) U/L Total Protein (6.3-8.2) g/dL Albumin (3.5-5.0) g/dL Crossmatch See Detail 09/29/17 Range/Units 07:51 WBC (3.8-10.6) k/uL RBC (4.30-5.90) m/uL Hgb (13.0-17.5) gm/dL Hct (39.0-53.0) % MCV (80.0-100.0) fL MCHC (31.0-37.0) g/dL RDW (11.5-15.5) % Plt Count (150-450) k/uL Neutrophils # (1.3-7.7) k/uL Lymphocytes # (1.0-4.8) k/uL Lymphocytes # (Manual) (1.0-4.8) k/uL Monocytes # (0-1.0) k/uL Myelocytes # (Manual) (0) k/uL PT (9.0-12.0) sec INR (<1.2) APTT (22.0-30.0) sec Potassium 7.1 H* (3.5-5.1) mmol/L Chloride (98-107) mmol/L Carbon Dioxide 11 L (22-30) mmol/L BUN 93 H* (9-20) mg/dL Creatinine 3.05 H (0.66-1.25) mg/dL Glucose 126 H (74-99) mg/dL Calcium (8.4-10.2) mg/dL Magnesium (1.6-2.3) mg/dL Total Bilirubin (0.2-1.3) mg/dL AST (17-59) U/L Total Creatine Kinase (55-170) U/L Total Protein (6.3-8.2) g/dL Albumin (3.5-5.0) g/dL Crossmatch CT scan - abdomen: report reviewed (Dr. Cho) Assessment and Plan (1) Acute upper GI bleed Narrative/Plan: 62-year-old male admitted with symptomatic anemia acute blood loss with a history of alcohol liver disease hepatitis C status post antiviral treatment presents with acute hematemesis and melena 1 day. Suspect esophageal variceal bleed status post recent hospitalization for upper GI bleed status post EGD with esophageal variceal banding August 2017. Current Visit: Yes Status: Acute Code(s): K92.2 - GASTROINTESTINAL HEMORRHAGE, UNSPECIFIED SNOMED Code(s): 55746405 (2) Acute blood loss anemia Current Visit: Yes Status: Acute Code(s): D62 - ACUTE POSTHEMORRHAGIC ANEMIA SNOMED Code(s): 958683363 (3) Hematemesis Current Visit: Yes Status: Acute Code(s): K92.0 - HEMATEMESIS SNOMED Code( s): 9416923 (4) Melena Current Visit: Yes Status: Acute Code(s): K92.1 - MELENA SNOMED Code(s): 0962382 (5) Esophageal varices Current Visit: No Status: Acute Code(s): I85.00 - ESOPHAGEAL VARICES WITHOUT BLEEDING SNOMED Code(s): 22633502 (6) Alcoholic cirrhosis of liver Current Visit: Yes Status: Chronic Code(s): K70.30 - ALCOHOLIC CIRRHOSIS OF LIVER WITHOUT ASCITES SNOMED Code(s): 874482563 (7) Thrombocytopenia Current Visit: No Status: Acute Code(s): D69.6 - THROMBOCYTOPENIA, UNSPECIFIED SNOMED Code(s): 114105882 (8) Hepatitis C virus infection cured after antiviral drug therapy Current Visit: No Status: Resolved Code(s): Z86.19 - PERSONAL HISTORY OF OTHER INFECTIOUS AND PARASITIC DISEASES SNOMED Code(s): 121950722 (9) Protein calorie malnutrition Current Visit: Yes Status: Acute Code(s): E46 - UNSPECIFIED PROTEIN-CALORIE MALNUTRITION SNOMED Code(s): 190312181 (10) Elevated serum creatinine Current Visit: Yes Status: Acute Code(s): R79.89 - OTHER SPECIFIED ABNORMAL FINDINGS OF BLOOD CHEMISTRY SNOMED Code(s): 025522884 (11) Elevated BUN Current Visit: Yes Status: Acute Code(s): R79.9 - ABNORMAL FINDING OF BLOOD CHEMISTRY, UNSPECIFIED SNOMED Code(s): 476263337 (12) Hyperkalemia Current Visit: Yes Status: Acute Code(s): E87.5 - HYPERKALEMIA SNOMED Code (s): 50036937 (13) Coagulopathy Current Visit: Yes Status: Acute Code(s): D68.9 - COAGULATION DEFECT, UNSPECIFIED SNOMED Code(s): 90643566 Plan: 1. Dr. Cho recommends transfusion of 2 units of FFP for reversal of coagulopathy with repeat PT/INR this evening. EGD scheduled for tomorrow pending reevaluation of PT/INR; ideally would like INR less than or equal to 1.7. 2. Rocephin 1 g every 24 hours preventative SBP in a patient with known esophageal varices with acute GI bleed. 3. Protonix 40 mg IV every 12. 4. Intravenous Sandostatin 25 g an hour. 5. CBC every 6 hours. PT/INR in a.m. 6. ICU monitoring; ICU bacon de rinder consulted. 7. Nothing by mouth except medications. 8. Continue lactulose 20 g 3 times a day. 9. Nephrology consultation for elevated BUN/creatinine/potassium. 10. Prealbumin assess for suspected protein calorie malnutrition. The rod greaser has discussed the risks, benefits and alternative therapies for the above-mentioned procedure and for both sedation/analgesia as well as necessary blood product administration, if indicated, as they pertain to this patient. The patient has indicated understanding and acceptance of the risks and procedures discussed. Thank you for this kind referral and the opportunity to participate in the care of your patient. This consultation was discussed with Dr. Cho. The impression and plan of care have been directed as dictated.
[2017-09-29] MEDS: cefTRIAXone IN SWFI 1,000 MG/10 ML SYRINGE IVP SCH (12:20)
[2017-09-29] MEDS: LACTULOSE 20 GM/30 ML CUP PO SCH ×2 (12:21→23:25)
[2017-09-29] MEDS: OCTREOTIDE 200 MCG in SODIUM CHLORIDE 0.9% 100 ML IV SCH ×2 (12:24→22:53)
[2017-09-29 13:22] LABS: Glucose,Whole Blood 119 mg/dL (75-99)
--- NOTE | 2017-09-29 13:48 | P.CNPUL ---
History of Present Illness Consult date: 09/29/17 Reason for consult: other Chief complaint: GI bleed, chronic liver disease, cirrhosis, hepatitis C History of present illness: Consult dated 09/29/2017 This is a 62-year-old male who looks 20 years older than that. The patient has a history of chronic alcoholic liver disease alcoholic cirrhosis hepatitis C history of hepatoma. He also has a history of previous GI bleed secondary to esophageal varices which have been banded. The patient was apparently admitted with a diagnosis of coffee ground emesis and also some black tarry stools. He also had weakness and abdominal pain. He was found to have a GI bleed in the emergency room and I did talk to the ER doctor last night. The patient will be admitted to the ICU. The patient was started on saline at 80 mL an hour and also Sandostatin octreotide at 25 mcg/m. The patient has a previous history of GI bleed. The primary doctor's Dr. Norton. In addition, the patient suffers from previous myocardial infarction gastroesophageal reflux disease anasarca ascites with paracentesis small hiatal hernia esophageal varices alcoholic myopathy thrombocytopenia. Surgical history includes heart catheterization tonsillectomy and paracentesis abdominis. He is also had previous EGDs with banding ligation. ALLERGIES are denied. Regular medications include vitamin B12 full of gas and multiple vitamins and B6 B1 Inderal Aldactone and Lasix and lactulose. Review of Systems A 12 point review of system is performed. Constitutional weakness neurologic negative HEENT negative cardiovascular negative pulmonary negative GI GI bleed negative rheumatologic negative immunologic negative endocrinologic negative dermatologic negative Past Medical History Past Medical History: GERD/Reflux, GI Bleed, Liver Disease, Myocardial Infarction ([place]), Renal Disease Additional Past Medical History / Comment(s): Pt has not drank alcohol in 4 years, alcoholic CHIRROSIS, ascities, esophageal varicies with banding, portal htn gastropathy, ventral hernia, SMALL SLIDING HIATAL HERNIA, nutritional myopathy and severe protein calorie malnutrition, chronic thrombocytopenia, hepatitis C, stigmata of chronic liver disease secondary to liver cirrhosis, renal disease stage III, vertigo when getting up. Last Myocardial Infarction Date:: 2001 History of Any Multi-Drug Resistant Organisms: None Reported Past Surgical History: Heart Catheterization, Tonsillectomy Additional Past Surgical History / Comment(s): multiple PARACENTESIS, EGDs, BAND LIGATION OF ESOPHAGEAL VARICES Past Anesthesia/Blood Transfusion Reactions: No Reported Reaction Smoking Status: Never smoker - Past Family History Father Additional Family Medical History / Comment(s): AT AGE 47 FROM [place], SMOKED. Mother Additional Family Medical History / Comment(s): AT AGE 84 HX UNK Medications and Allergies Home Medications Medication Instructions Recorded Confirmed Type Cyanocobalamin [Vitamin B-12] 500 mcg PO DAILY 02/14/15 09/28/17 History Folic Acid 1 mg PO DAILY 02/14/15 09/28/17 History Multivitamins, Thera [Multivitamin 1 tab PO DAILY 02/14/15 09/28/17 History (formulary)] Pyridoxine [Vitamin B-6] 100 mg PO DAILY 02/14/15 09/28/17 History Thiamine [Vitamin B-1] 100 mg PO DAILY 02/14/15 09/28/17 History Propranolol [Inderal] 5 mg PO DAILY 07/10/15 09/28/17 History Spironolactone [Aldactone] 50 mg PO DAILY 07/10/15 09/28/17 History Spironolactone [Aldactone] 25 mg PO HS 08/29/17 09/28/17 History Furosemide [Lasix] 40 mg PO BID 09/28/17 09/28/17 History Lactulose 20 gm PO TID 09/28/17 09/28/17 History Allergies Allergy/AdvReac Type Severity Reaction Status Date / Time No Known Allergies Allergy Verified 09/28/17 15:11 Physical Exam Osteopathic Statement: *. No significant issues noted on an osteopathic structural exam other than those noted in the History and Physical/Consult. Vitals: Vital Signs Temp Pulse Resp BP Pulse Ox 09/29/17 12:11 97.4 F L 62 16 123/59 100 09/29/17 11:18 59 L 16 125/59 100 09/29/17 10:18 62 16 115/54 100 09/29/17 09:59 62 16 112/52 98 09/29/17 09:00 63 16 129/59 100 09/29/17 08:00 62 16 125/74 100 09/29/17 07:00 64 16 110/53 100 09/29/17 06:00 74 16 117/56 100 09/29/17 05:28 88 18 122/63 100 02/13/18 04:18 78 18 113/66 100 09/29/17 03:47 69 16 121/67 100 09/29/17 01:40 96.8 F L 72 18 145/70 100 09/29/17 00:40 96.9 F L 66 18 139/65 100 09/29/17 00:10 96.8 F L 95 18 128/69 100 09/28/17 23:40 97.0 F L 77 18 140/71 100 09/28/17 23:25 96.9 F L 71 18 126/63 100 09/28/17 23:05 96.8 F L 74 18 132/66 100 09/28/17 22:50 96.8 F L 72 18 130/68 100 09/28/17 21:50 97.6 F 72 18 141/71 09/28/17 21:30 97.0 F L 70 18 138/75 100 09/28/17 21:00 96.7 F L 84 18 138/64 100 09/28/17 20:38 97.0 F L 64 18 138/73 100 09/28/17 20:28 97.0 F L 66 18 144/78 100 09/28/17 20:19 95.7 F L 72 18 134/62 100 09/28/17 20:08 95.6 F L 65 18 133/63 100 09/28/17 19:58 95.6 F L 66 18 131/60 100 09/28/17 19:48 95.5 F L 73 18 128/61 100 09/28/17 19:13 73 18 144/74 100 09/28/17 18:07 62 18 144/80 100 09/28/17 17:00 66 18 133/76 100 09/28/17 16:20 65 18 132/76 100 09/28/17 15:25 61 18 125/59 99 09/28/17 14:38 98.9 F 63 18 113/67 100 Intake and Output 09/28/17 09/29/17 09/29/17 22:59 06:59 14:59 Intake Total 310 310 Balance 310 310 Intake: Blood Product 310 310 Rc As-1 Unit 0 310 [id number] Rc As-1 Unit 310 [id number] No acute distress, oriented 3. Patient looks much older than his stated age. His speech is slow. Not requiring any oxygen therapy. HEENT examination is grossly unremarkable. Mucous membranes are moist. No oral lesions. Neck supple. Full range of motion. No adenopathy thyromegaly or neck vein distention. Cardiovascular examination reveals regular rhythm rate. S1-S2 normal. No S3 or S4. No discernible murmur noted. Lungs reveal clear breath sounds. Her sounds are equal bilaterally. No adventitious lung sounds including wheezes rhonchi or crackles. Abdomen soft bowel sounds are heard. No masses or tenderness. Extremities are intact. No cyanosis clubbing or edema. Skin is without rash or lesion. Neurologic examination is brief but nonfocal. Results - Laboratory Findings CBC and BMP: 09/29/17 07:51 09/29/17 07:51 PT/INR, D-dimer PT 24.6 sec (9.0-12.0) H 09/29/17 11:13 INR 2.7 (<1.2) H 09/29/17 11:13 Abnormal lab findings: Abnormal Labs 09/28/17 09/28/17 09/28/17 15:15 15:15 15:15 WBC RBC 1.18 L Hgb 4.1 L* D Hct 13.6 L* MCV 115.0 H D MCHC 30.3 L RDW Plt Count 88 L Neutrophils # Lymphocytes # Lymphocytes # (Manual) 0.41 L Monocytes # Myelocytes # (Manual) 0.24 H PT INR APTT Potassium Chloride 116 H Carbon Dioxide 12 L BUN 45 H Creatinine 1.28 H Glucose 73 L POC Glucose (mg/dL) Calcium 6.8 L Magnesium 1.3 L Total Bilirubin 2.9 H AST 69 H Total Creatine Kinase <20 L Total Protein 4.3 L Albumin 1.4 L Crossmatch 09/28/17 09/28/17 09/29/17 15:15 15:15 07:51 WBC 15.0 H RBC 2.65 L Hgb 9.0 L D Hct 29.0 L MCV 109.1 H D MCHC RDW 19.6 H Plt Count 102 L Neutrophils # 12.7 H Lymphocytes # 0.9 L Lymphocytes # (Manual) Monocytes # 1.1 H Myelocytes # (Manual) PT 25.6 H INR 2.9 H APTT 48.0 H Potassium Chloride Carbon Dioxide BUN Creatinine Glucose POC Glucose (mg/dL) Calcium Magnesium Total Bilirubin AST Total Creatine Kinase Total Protein Albumin Crossmatch See Detail 09/29/17 09/29/17 09/29/17 07:51 11:13 13:20 WBC RBC Hgb Hct MCV MCHC RDW Plt Count Neutrophils # Lymphocytes # Lymphocytes # (Manual) Monocytes # Myelocytes # (Manual) PT 24.6 H INR 2.7 H APTT Potassium 7.1 H* Chloride Carbon Dioxide 11 L BUN 93 H* Creatinine 3.05 H Glucose 126 H POC Glucose (mg/dL) 119 H Calcium Magnesium Total Bilirubin AST Total Creatine Kinase Total Protein Albumin Crossmatch - Diagnostic Findings Chest x-ray: image reviewed (Labs x-rays medications and CAT scans are reviewed. Patient's interviewed and examined.) Assessment and Plan Assessment: Assessment Alcoholic liver disease, with cirrhosis. GI bleed, likely secondary to esophageal varices with previous history of same status post banding History of GI bleed secondary to esophageal varices Hyperkalemia Renal failure Rule out hepatorenal syndrome Hepatitis C History of myocardial infarction Status post paracentesis abdominis Protein calorie malnutrition Thrombocytopenia Anemia. Plan: Plan dated 09/29/2017 The patient looks much older than his stated age. The patient is currently on octreotide. The patient down is at high risk for additional GI bleed. I question whether or not the patient should be transferred to a tertiary care center such as having before. I'll talk to Paula about that. The patient has received 2 units of blood. The patient's currently on saline at 80 mL an hour. The patient is a previous history of GI bleed. He is also status post banding of esophageal varices. Computed tomography scan a chest x-ray of both reviewed. Additional recommendations suggestions are forthcoming. Overall prognosis is very poor. Time with Patient: Greater than 30
[2017-09-29 16:07] LABS: Calcium 9.8 mg/dL (8.4-10.2)
[2017-09-29 16:15] LABS: Potassium 6.9 mmol/L (3.5-5.1)
[2017-09-29] MEDS ORDERED: DEXTROSE 50%-WATER 50 ML SYRINGE IVP STA (16:57)
[2017-09-29] MEDS ORDERED: SODIUM BICARB 8.4% 50 ML SYR (1 MEQ/ML) IV STA (17:01)
[2017-09-29] MEDS ORDERED: INSULIN REGULAR 100 UNIT/ML VIAL IV ONE (17:15)
[2017-09-29] MEDS: DEXTROSE 5% IN WATER 1,000 ML with SODIUM BICARB (1 MEQ/ML) 150 ML IV SCH (17:24)
[2017-09-29 19:03] LABS: INR 2.2 (<1.2); Prothrombin Time 19.8 sec (9.0-12.0)
--- NOTE | 2017-09-29 19:13 | PN ---
PROGRESS NOTE DATE OF SERVICE: 09/29/2017. IDENTIFYING DATA: 62 years old, , white male. He is currently in ICU 611 bed 2. is no new. ALLERGIES: Unknown. DATA: He is a FULL CODE. He is 5 foot 9 inches and weight 72.575 kg. BSA 1.88 m2, BMI 23.6 kg/m2. HISTORY: The patient is seen today and evaluated in the ICU after he was overnight in the emergency room for overflow. Currently he is in the ICU and seen in the ICU at 611 bed 2. During the morning hours I was called because his laboratories have been apparently very high potassium and at that time was 7.1 on the potassium and sodium 138, chloride 106, carbon dioxide was 11. His anion gap is 21. His BUN is 93 and creatinine 3.05. His estimated glomerular filtration rate was 21 and his glucose was 126. At that time, the patient was treated with Kayexalate 15 grams orally and 30 grams enema. The nurse called me back and stated that the patient refused any enema at this time and he is completely adamant not to have any enema. For that purpose, we increased the Kayexalate until the linux unix engineer sees the patient, we increased the Kayexalate to 30 mg orally. Meanwhile we started him on calcium gluconate until Nephrology could see the patient as well as Critical Care was consulted through the night, to be seen by Dr. Wallace who is on-call for Critical Care. Subsequently we found that his INR was 2.7 and the protime was 24.6. The patient is not on any anticoagulants, but because of his liver cirrhosis, associated with alcoholic liver cirrhosis; however, patient denied any recent alcohol intake and this has been chronic. The patient was admitted previously about 3 weeks to 1 month ago with the GI bleeding, however, at that time his hemoglobin was not dropped to the level of this time. This time went down to 4.1. The patient received blood transfusion and currently the hemoglobin is 9. He received 2 units of red blood cells and 1 unit of fresh frozen plasma and his hemoglobin is 9. Today in the ICU, as I see him, he will be seen today as well by Pulmonary and Critical as well as Nephrology, as I did request that as well as Gastroenterology. Gastroenterology PA has seen the patient for the GI and the impression, as they mentioned, is that Dr. Cho recommended 2 units of fresh frozen plasma and reversal of coagulopathy and repeat PT and INR. Meanwhile he is started on 1 g of every 24 hours of Rocephin and Protonix 40 mg IV every 12 hours and Sandostatin 25 mcg/hour intravenous. CBC every 6 hours and PT/INR in a.m. The ICU already, Critical Care, Dr. Wallace has been consulted. Nothing by mouth and also continue the lactulose 20 g 3 times a day. Nephrology consultation and pre-albumin to assess. Dr. Wallace, as well, did see the patient and his impression at this time is that the patient had alcoholic liver disease with cirrhosis, he has GI bleeding secondary to esophageal varices with a previous history of this same status and post banding. He had hyperkalemia, renal failure, rule out hepatorenal syndrome, history of the hepatitis C. However, it was noted that the patient has been treated for hepatitis C. He had a history of a OK in the past, per Dr. Wallace, and he has a history of paracentesis in the past but not recently. Also protein calorie malnutrition and thrombocytopenia. The patient received 2 units of RBCs and he is still being on 80 mL/h of normal saline. He did have a CT scan of the abdomen without contrast. His CT scan of the abdomen without contrast indicating also that he has liver cirrhosis as the changes in the CT scan. He had also stable [id number] ascites and multiple calcified gallstones with umbilical hernia. He had also underlying sclerotic changes in the femoral head, which is the possibility of avascular necrosis as well. He had 10% compression deformity at L2 and L5. On exam, and seeing him in the ICU, he was hypothermic and they put him in the thermal blanket. His vital sign were stable, blood pressure is 123/59 with mean 80, oxygen was 100% to 95 on room air, his temperature was 97.4, pulse rate was 62 per minute. He is cachectic and loss of muscle mass. He had a tinge of jaundice on the sclerae. No facial asymmetry. The neck was supple. Chest was increased anteroposterior diameter with the underlying history of COPD. Heart PMI in the 5th intercostal space and normal S1, S2. No gallop. The abdomen was soft. Positive bowel sounds and epigastric tenderness. As mentioned, he had ultrasound done recently for paracenteses of the abdomen and he had a umbilical hernia and the ultrasound indicated that there was no fluid at that time, and there was a possible mass in the liver. We did a CT scan today, indicated no evidence of mass at that time, but the structure is the alcoholic liver disease. We will see what Dr. Cho's recommendation and treatment are at that time. Laboratory indicating significant hyperkalemia. ASSESSMENT: 1. Alcoholic liver disease with alcoholic cirrhosis. 2. Umbilical hernia. 3. Contracted gallbladder with multiple stones. 4. Leukocytosis which appeared today versus yesterday. 5. Underlying anemia and macrocytosis with history of alcoholic liver disease and thrombocytopenia. His BUN and creatinine are associated with acute kidney injury. Consultation with Nephrology. Underlying hepatorenal syndrome is progressively present. He has underlying stage 4 chronic kidney disease, however, the change is acute with the acute kidney injury. 6. Metabolic acidosis with the associated carbon dioxide of 11 and 8 on repeat, with severe metabolic acidosis. 7. The anion gap was 25, was earlier 21 and now is 25. The current treatment is, the patient is on Rocephin and he had received calcium gluconate. He is on lactulose and morphine, , and pantoprazole. I do not think that the patient has any sodium bicarb and his IV used to be sodium chloride and the sodium bicarb was given 1 time 50 mL once and that was discontinued and that was ordered by Dr. Gary, the linux unix engineer. Patient in the ICU and he has multiple medical problems. The prognosis is guarded to poor. He has Critical Care consultation, Dr. Wallace, and Nephrology, Dr. Gary, as well and Dr. Shania Cho, the locum tenens. MMODL / IJN: [id number] /
[2017-09-29 21:44] LABS: Anisocytosis Slight; Basophils # (A) 0.1 k/uL (0-0.2); Basophils % (A) 0 %; Eosinophils % (A) 0 %; HCT 25.9 % (39.0-53.0); HGB 7.8 gm/dL (13.0-17.5); Hypochromasia Marked; Lymphocytes # (A) 0.7 k/uL (1.0-4.8); Lymphocytes % (A) 4 %; MCH 33.6 pg (25.0-35.0); MCHC 30.3 g/dL (31.0-37.0); Mean Platelet Volume 11.1; Monocytes % (A) 6 %; Neutrophils # (A) 14.2 k/uL (1.3-7.7); Neutrophils % (A) 88 %; RBC 2.33 m/uL (4.30-5.90); RDW 19.5 % (11.5-15.5); WBC 16.1 k/uL (3.8-10.6)
[2017-09-29 21:45] LABS: Macrocytosis Marked; Platelet Count 83 k/uL (150-450)
[2017-09-29 22:02] LABS: Anisocytosis Moderate; HCT 24.4 % (39.0-53.0); HGB 7.1 gm/dL (13.0-17.5); Hypochromasia Marked; MCH 33.5 pg (25.0-35.0); MCHC 29.1 g/dL (31.0-37.0); MCV 115.2 fL (80.0-100.0); Mean Platelet Volume 9.6; RBC 2.11 m/uL (4.30-5.90); RDW 20.1 % (11.5-15.5); WBC 14.5 k/uL (3.8-10.6)
[2017-09-29 22:20] LABS: Calcium 10.1 mg/dL (8.4-10.2); Potassium 5.4 mmol/L (3.5-5.1)
[2017-09-29 22:22] LABS: Macrocytosis Marked; Platelet Count 75 k/uL (150-450)
[2017-09-29 23:03] LABS: ABG Oxygen Saturation 98.5 % (94-97); ABG PH 7.33 (7.35-7.45); ABG PO2 126 mmHg (83-108)
[2017-09-29 23:04] LABS: ABG PCO2 <15 mmHg (35-45)
[2017-09-29 23:09] LABS: Band Neutrophils % 12 %; Lymphocytes # (M) 0.44 k/uL (1.0-4.8); Monocytes # (M) 0.44 k/uL (0-1.0); Neutrophils % (M) 82 %; Nucleated Red Blood Cells 0 /100 WBC (0-0); Total Cells Counted 100
[2017-09-30] MEDS ORDERED: NOREPINEPHRIN 4 MG-0.9% NS PMX 4 MG/250 ML ML IV ONE (01:06)
[2017-09-30] MEDS: NOREPINEPHRIN 4 MG-0.9% NS PMX 4 MG/250 ML ML IV SCH ×3 (01:10→05:06)
[2017-09-30 01:34] LABS: ABG Oxygen Saturation 98.6 % (94-97); ABG PO2 151 mmHg (83-108)
[2017-09-30 01:38] LABS: ABG PCO2 <15 mmHg (35-45)
[2017-09-30 01:42] LABS: Anisocytosis Moderate; HCT 20.1 % (39.0-53.0); Hypochromasia Marked; MCH 33.3 pg (25.0-35.0); MCHC 29.9 g/dL (31.0-37.0); MCV 111.2 fL (80.0-100.0); Macrocytosis Marked; Platelet Count 77 k/uL (150-450); Poikilocytosis Slight; RDW 20.3 % (11.5-15.5)
[2017-09-30 01:54] LABS: Calcium 8.7 mg/dL (8.4-10.2)
[2017-09-30 01:56] LABS: Potassium 6.6 mmol/L (3.5-5.1)
[2017-09-30] MEDS ORDERED: SODIUM CHLORIDE 0.9% 2,000 ML IV ONE (02:37)
[2017-09-30] MEDS ORDERED: KETAMINE 10 MG/ML 20 ML VIAL ONE (02:38)
[2017-09-30] MEDS ORDERED: PROPOFOL 1,000 MG in EMPTY BAG 1 BAG IV SCH (02:45)
[2017-09-30 03:25] LABS: Band Neutrophils % 7 %; Lymphocytes # (M) 0.69 k/uL (1.0-4.8); Monocytes # (M) 1.21 k/uL (0-1.0); Neutrophils % (M) 82 %; Nucleated Red Blood Cells 2 /100 WBC (0-0); Polychromasia Present; Total Cells Counted 200; WBC 17.3 k/uL (3.8-10.6)
[2017-09-30 03:26] LABS: Toxic Vacuolation Present
--- NOTE | 2017-09-30 04:00 | XR ---
INDICATION: Endotracheal tube placement COMPARISON: CXR 09/28/17 FINDINGS: Single frontal view demonstrates endotracheal tube terminating 3.3 cm above the valerie. Interval development of bilateral hilar prominence and central pulmonary vascular congestion suggesting. No pleural effusion or pneumothorax. Stable heart size. No acute osseous findings. IMPRESSION: 1. Endotracheal tube terminating 3.3 cm above the valerie. 2. Interval development of pulmonary vascular congestion.
[2017-09-30 04:04] LABS: ABG Oxygen Saturation 99.5 % (94-97); ABG PCO2 29 mmHg (35-45); ABG PO2 343 mmHg (83-108); ABG TCO2 8 mmol/L (19-24)
[2017-09-30 04:08] LABS: ABG HCO3 7 mmol/L (21-25)
[2017-09-30 04:10] VITALS: BP 58/40; TEMP 93.8
[2017-09-30] MEDS ORDERED: SODIUM BICARB 8.4% 50 ML VIAL (1 MEQ/ML) IV ONE (04:23)
[2017-09-30] MEDS: OCTREOTIDE 200 MCG in SODIUM CHLORIDE 0.9% 100 ML IV SCH (05:06)
[2017-09-30] MEDS: DEXTROSE 5% IN WATER 1,000 ML with SODIUM BICARB (1 MEQ/ML) 150 ML IV SCH ×2 (05:07→09:08)
[2017-09-30 05:09] LABS: Anisocytosis Moderate; HCT 21.1 % (39.0-53.0); Hypochromasia Marked; MCH 31.4 pg (25.0-35.0); MCHC 30.7 g/dL (31.0-37.0); MCV 102.6 fL (80.0-100.0); Mean Platelet Volume 8.9; RBC 2.06 m/uL (4.30-5.90); RDW 21.2 % (11.5-15.5)
[2017-09-30] MEDS ORDERED: SODIUM BICARB 8.4% 50 ML SYR (1 MEQ/ML) IV STA (05:12)
[2017-09-30 05:14] LABS: INR 2.4 (<1.2); Prothrombin Time 21.4 sec (9.0-12.0)
[2017-09-30 05:21] LABS: Macrocytosis Marked; Platelet Count 71 k/uL (150-450)
[2017-09-30 05:23] LABS: HGB 6.5 gm/dL (13.0-17.5)
[2017-09-30 06:14] VITALS: PULSE 84
[2017-09-30 06:14] LABS: Band Neutrophils % 13 %; Basophils # (M) 0.09 k/uL (0-0.2); Lymphocytes # (M) 1.01 k/uL (1.0-4.8); Metamyelocytes # (M) 0.37 k/uL (0); Metamyelocytes % 4 %; Monocytes # (M) 0.64 k/uL (0-1.0); Neutrophils % (M) 66 %; Nucleated Red Blood Cells 6 /100 WBC (0-0); Total Cells Counted 200; WBC 9.2 k/uL (3.8-10.6)
[2017-09-30] MEDS ORDERED: CHLORHEXIDINE GLUCONATE 15 ML CUP MUCOUS MEM SCH (09:00)
[2017-09-30] MEDS: cefTRIAXone IN SWFI 1,000 MG/10 ML SYRINGE IVP SCH (09:10)
[2017-09-30] MEDS: LACTULOSE 20 GM/30 ML CUP PO SCH (09:10)
[2017-09-30] MEDS: PANTOPRAZOLE 40 MG/10 ML VIAL IV SCH (09:10)
[2017-09-30 09:11] VITALS: RESP 0
--- NOTE | 2017-09-30 09:49 | P.PN ---
Subjective Progress Note Date: 09/30/17 Principal diagnosis: Liver failure Progress note dated 09/30/2017. This is a 62-year-old male who we saw yesterday in consultation. He has a history of chronic alcoholic liver disease alcoholic liver cirrhosis hepatitis C hepatoma and GI bleed. The patient has done poorly through the afternoon yesterday and early evening and then last night developed symone respiratory failure. TANK WAGON OPERATOR was called and the patient was intubated with some difficulty. Subsequent to that, the patient developed worsening respiratory failure multiorgan system failure profound hypotension liver failure and patient required very intensive management through the night. He received a number of fluid boluses and received probably more than 6-8 L of fluid. The patient was also having issues with severe hyperkalemia and metabolic acidosis bleeding mental status changes and profound hypotension. The patient was given norepinephrine at maximal doses. Despite all of this, the patient did poorly as the night progressed. The nurses recall immediately truly every 20 or 30 minutes with one abnormality over another. Despite all we did, and a very excellent work done by the nurses, the patient only had a blood pressure of about 30 mmHg this morning. Family members are on the way. An ex- was in the room. The patient's unresponsive. Profoundly jaundiced. The patient's medical problems including alcoholic liver disease with cirrhosis, GI bleed secondary to esophageal varices, hyperkalemia, renal failure, possible hepatorenal syndrome, hepatitis C, history of myocardial infarction, ascites with previous paracentesis abdominis protein calorie malnutrition and bicytopenia. Objective - Vital Signs Vital signs: Vital Signs Temp 93.8 F L 09/30/17 04:09 Pulse 84 09/30/17 06:00 Resp 0 L 09/30/17 09:00 BP 58/40 09/30/17 04:09 Pulse Ox 94 L 09/30/17 08:00 Intake & Output 09/29/17 09/30/17 09/30/17 18:59 06:59 18:59 Intake Total 1050 3191.454 400 Output Total 50 115 0 Balance 1000 3076.454 400 Intake: IV 420 1300 400 Calcium Gluconate 1,000 100 mg In Sodium Chloride 0.9 % 100 ml @ 100 mls/hr IVPB ONCE ONE Rx#: [id number] Dextrose 5% in Water 1, 1200 400 000 ml @ 200 mls/hr IV . Q5H45M ANTIONE with Sodium Bicarb (1 Meq/ml) 150 ml Rx#:[id number] Sodium Chloride 0.9% 1, 420 000 ml @ 80 mls/hr IV . [id number] [facility] Rx#:[id number] Intake, IV Titration 679.454 Amount Norepinephrin 4 mg-0.9% 500.00 Ns Pmx 4 mg In 250 ml @ Titrate IV .Q0M [facility] Rx#: [id number] Octreotide 200 mcg In 179.454 Sodium Chloride 0.9% 100 ml @ 25 MCG/HR 12.62 mls/ hr IV .Q8H1M [facility] Rx#: [id number] Blood Product 630 1212 Ffp 24 Cpd Unit 317 [id number] Ffp 24 Cpd Unit 299 [id number] Ffp 24 Cpd Unit 313 [id number] Ffp 24 Cpd Unit 293 [id number] Rc Pheresis 2 As3 Unit 310 [id number] Rc Pheresis 2 As3 Unit 310 [id number] Output: Urine 50 115 0 Other: Voiding Method Indwelling Catheter Indwelling Catheter ABP, PAP, CO, CI - Last Documented Arterial Blood Pressure 32/23 - Exam Unresponsive, oral endotracheal tube and NG tube in place. HEENT examination is grossly unremarkable. Mucous membranes are dry.. Neck supple. Full range of motion. No adenopathy thyromegaly or neck vein distention. Cardiovascular examination reveals tachycardia. It's regular. Heart rate is 115 bpm. No distinct murmur noted. Lungs reveal diminished breath sounds. A few scattered rhonchi. A few crackles. No wheezes. Abdomen soft without bowel sounds. No masses or tenderness. The patient does have an umbilical hernia. Extremities are mottled with acrocyanosis Skin reveals livedo reticularis. Neurologic examination could not be adequately assessed - Labs CBC & Chem 7: 09/30/17 05:00 09/30/17 01:35 Labs: Abnormal Lab Results - Last 24 Hours (Table) 09/28/17 09/29/17 09/29/17 Range/Units 19:45 07:51 11:13 WBC (3.8-10.6) k/uL RBC (4.30-5.90) m/uL Hgb (13.0-17.5) gm/dL Hct (39.0-53.0) % MCV (80.0-100.0) fL MCHC (31.0-37.0) g/dL RDW (11.5-15.5) % Plt Count (150-450) k/uL Neutrophils # (1.3-7.7) k/uL Neutrophils # (Manual) (1.3-7.7) k/uL Lymphocytes # (1.0-4.8) k/uL Lymphocytes # (Manual) (1.0-4.8) k/uL Monocytes # (Manual) (0-1.0) k/uL Metamyelocytes # (Man) (0) k/uL Nucleated RBCs (0-0) /100 WBC PT 24.6 H (9.0-12.0) sec INR 2.7 H (<1.2) ABG pH (7.35-7.45) ABG pCO2 (35-45) mmHg ABG pO2 (83-108) mmHg ABG HCO3 (21-25) mmol/L ABG Total CO2 (19-24) mmol/L ABG O2 Saturation (94-97) % Potassium (3.5-5.1) mmol/L Carbon Dioxide (22-30) mmol/L BUN (9-20) mg/dL Creatinine (0.66-1.25) mg/dL Glucose (74-99) mg/dL POC Glucose (mg/dL) (75-99) mg/dL Prealbumin <5.0 L (18.0-42.0) mg/dL Crossmatch See Detail 09/29/17 09/29/17 09/29/17 Range/Units 13:20 15:36 15:36 WBC 16.1 H (3.8-10.6) k/uL RBC 2.33 L (4.30-5.90) m/uL Hgb 7.8 L (13.0-17.5) gm/dL Hct 25.9 L (39.0-53.0) % MCV 111.0 H (80.0-100.0) fL MCHC 30.3 L (31.0-37.0) g/dL RDW 19.5 H (11.5-15.5) % Plt Count 83 L (150-450) k/uL Neutrophils # 14.2 H (1.3-7.7) k/uL Neutrophils # (Manual) (1.3-7.7) k/uL Lymphocytes # 0.7 L (1.0-4.8) k/uL Lymphocytes # (Manual) (1.0-4.8) k/uL Monocytes # (Manual) (0-1.0) k/uL Metamyelocytes # (Man) (0) k/uL Nucleated RBCs (0-0) /100 WBC PT (9.0-12.0) sec INR (<1.2) ABG pH (7.35-7.45) ABG pCO2 (35-45) mmHg ABG pO2 (83-108) mmHg ABG HCO3 (21-25) mmol/L ABG Total CO2 (19-24) mmol/L ABG O2 Saturation (94-97) % Potassium 6.9 H* (3.5-5.1) mmol/L Carbon Dioxide 8 L* (22-30) mmol/L BUN 96 H* (9-20) mg/dL Creatinine 3.50 H (0.66-1.25) mg/dL Glucose (74-99) mg/dL POC Glucose (mg/dL) 119 H (75-99) mg/dL Prealbumin (18.0-42.0) mg/dL Crossmatch 09/29/17 09/29/17 09/29/17 Range/Units 18:30 21:45 21:45 WBC 14.5 H (3.8-10.6) k/uL RBC 2.11 L (4.30-5.90) m/uL Hgb 7.1 L (13.0-17.5) gm/dL Hct 24.4 L (39.0-53.0) % MCV 115.2 H (80.0-100.0) fL MCHC 29.1 L (31.0-37.0) g/dL RDW 20.1 H (11.5-15.5) % Plt Count 75 L (150-450) k/uL Neutrophils # (1.3-7.7) k/uL Neutrophils # (Manual) 13.60 H (1.3-7.7) k/uL Lymphocytes # (1.0-4.8) k/uL Lymphocytes # (Manual) 0.44 L (1.0-4.8) k/uL Monocytes # (Manual) (0-1.0) k/uL Metamyelocytes # (Man) (0) k/uL Nucleated RBCs (0-0) /100 WBC PT 19.8 H (9.0-12.0) sec INR 2.2 H (<1.2) ABG pH (7.35-7.45) ABG pCO2 (35-45) mmHg ABG pO2 (83-108) mmHg ABG HCO3 (21-25) mmol/L ABG Total CO2 (19-24) mmol/L ABG O2 Saturation (94-97) % Potassium 5.4 H (3.5-5.1) mmol/L Carbon Dioxide 10 L* (22-30) mmol/L BUN 94 H* (9-20) mg/dL Creatinine 3.62 H (0.66-1.25) mg/dL Glucose 119 H (74-99) mg/dL POC Glucose (mg/dL) (75-99) mg/dL Prealbumin (18.0-42.0) mg/dL Crossmatch 09/29/17 09/30/17 09/30/17 Range/Units 22:49 01:30 01:35 WBC 17.3 H (3.8-10.6) k/uL RBC 1.80 L (4.30-5.90) m/uL Hgb 6.0 L* (13.0-17.5) gm/dL Hct 20.1 L (39.0-53.0) % MCV 111.2 H (80.0-100.0) fL MCHC 29.9 L (31.0-37.0) g/dL RDW 20.3 H (11.5-15.5) % Plt Count 77 L (150-450) k/uL Neutrophils # (1.3-7.7) k/uL Neutrophils # (Manual) 15.30 H (1.3-7.7) k/uL Lymphocytes # (1.0-4.8) k/uL Lymphocytes # (Manual) 0.69 L (1.0-4.8) k/uL Monocytes # (Manual) 1.21 H (0-1.0) k/uL Metamyelocytes # (Man) (0) k/uL Nucleated RBCs 2 H (0-0) /100 WBC PT (9.0-12.0) sec INR (<1.2) ABG pH 7.33 L 7.20 L* (7.35-7.45) ABG pCO2 <15 L* <15 L* (35-45) mmHg ABG pO2 126 H 151 H (83-108) mmHg ABG HCO3 (21-25) mmol/L ABG Total CO2 (19-24) mmol/L ABG O2 Saturation 98.5 H 98.6 H (94-97) % Potassium (3.5-5.1) mmol/L Carbon Dioxide (22-30) mmol/L BUN (9-20) mg/dL Creatinine (0.66-1.25) mg/dL Glucose (74-99) mg/dL POC Glucose (mg/dL) (75-99) mg/dL Prealbumin (18.0-42.0) mg/dL Crossmatch 09/30/17 09/30/17 09/30/17 Range/Units 01:35 04:00 05:00 WBC (3.8-10.6) k/uL RBC (4.30-5.90) m/uL Hgb (13.0-17.5) gm/dL Hct (39.0-53.0) % MCV (80.0-100.0) fL MCHC (31.0-37.0) g/dL RDW (11.5-15.5) % Plt Count (150-450) k/uL Neutrophils # (1.3-7.7) k/uL Neutrophils # (Manual) (1.3-7.7) k/uL Lymphocytes # (1.0-4.8) k/uL Lymphocytes # (Manual) (1.0-4.8) k/uL Monocytes # (Manual) (0-1.0) k/uL Metamyelocytes # (Man) (0) k/uL Nucleated RBCs (0-0) /100 WBC PT 21.4 H (9.0-12.0) sec INR 2.4 H (<1.2) ABG pH 7.00 L* (7.35-7.45) ABG pCO2 29 L (35-45) mmHg ABG pO2 343 H (83-108) mmHg ABG HCO3 7 L* (21-25) mmol/L ABG Total CO2 8 L (19-24) mmol/L ABG O2 Saturation 99.5 H (94-97) % Potassium 6.6 H* (3.5-5.1) mmol/L Carbon Dioxide 6 L* (22-30) mmol/L BUN 86 H* (9-20) mg/dL Creatinine 3.60 H (0.66-1.25) mg/dL Glucose 114 H (74-99) mg/dL POC Glucose (mg/dL) (75-99) mg/dL Prealbumin (18.0-42.0) mg/dL Crossmatch 09/30/17 Range/Units 05:00 WBC (3.8-10.6) k/uL RBC 2.06 L (4.30-5.90) m/uL Hgb 6.5 L* (13.0-17.5) gm/dL Hct 21.1 L (39.0-53.0) % MCV 102.6 H D (80.0-100.0) fL MCHC 30.7 L (31.0-37.0) g/dL RDW 21.2 H (11.5-15.5) % Plt Count 71 L (150-450) k/uL Neutrophils # (1.3-7.7) k/uL Neutrophils # (Manual) (1.3-7.7) k/uL Lymphocytes # (1.0-4.8) k/uL Lymphocytes # (Manual) (1.0-4.8) k/uL Monocytes # (Manual) (0-1.0) k/uL Metamyelocytes # (Man) 0.37 H (0) k/uL Nucleated RBCs 6 H (0-0) /100 WBC PT (9.0-12.0) sec INR (<1.2) ABG pH (7.35-7.45) ABG pCO2 (35-45) mmHg ABG pO2 (83-108) mmHg ABG HCO3 (21-25) mmol/L ABG Total CO2 (19-24) mmol/L ABG O2 Saturation (94-97) % Potassium (3.5-5.1) mmol/L Carbon Dioxide (22-30) mmol/L BUN (9-20) mg/dL Creatinine (0.66-1.25) mg/dL Glucose (74-99) mg/dL POC Glucose (mg/dL) (75-99) mg/dL Prealbumin (18.0-42.0) mg/dL Crossmatch Assessment and Plan Assessment: Assessment Hypoxemic respiratory failure requiring intubation and mechanical ventilation Multiorgan system failure Profound metabolic acidosis Alcoholic liver disease, with cirrhosis. GI bleed, likely secondary to esophageal varices with previous history of same status post banding History of GI bleed secondary to esophageal varices Hyperkalemia Renal failure Rule out hepatorenal syndrome Hepatitis C History of myocardial infarction Status post paracentesis abdominis Protein calorie malnutrition Thrombocytopenia Anemia. Plan: Plan dated 09/29/2017 The patient looks much older than his stated age. The patient is currently on octreotide. The patient down is at high risk for additional GI bleed. I question whether or not the patient should be transferred to a tertiary care center such as having before. I'll talk to Paula about that. The patient has received 2 units of blood. The patient's currently on saline at 80 mL an hour. The patient is a previous history of GI bleed. He is also status post banding of esophageal varices. Computed tomography scan a chest x-ray of both reviewed. Additional recommendations suggestions are forthcoming. Overall prognosis is very poor. Plan dated 09/30/2017 The patient's norepinephrine was raised to 65 mcg/m. The patient was getting an IV of D5W with 3 units of bicarb at 1 25 mL an hour. Vent settings included the assist control mode rate of 22 tidal volume 450 FiO2 and percent PEEP of 5. Blood gases revealed relative hypoxemia and a profound metabolic acidosis. Unfortunately, despite intensive management, the patient developed multiorgan system failure. He declined very rapidly last night and this morning. He is a no code. Time with Patient: Greater than 30
--- NOTE | 2017-09-30 10:10 | P.PN ---
Subjective Progress Note Date: 09/30/17 Principal diagnosis: GI bleeding cirrhosis 62-year-old male with a history of alcohol liver cirrhosis hepatitis C with treatment esophageal varices with recent GI bleed a month ago presented with acute hematemesis. Patient decompensated through the night with active bleeding respiratory failure and was subsequently intubated and placed on pressors. Hemoglobin earlier this morning was 6.0. He received a total of 4 units of blood since admission and 4 units of FFP. Current hemoglobin 6.5. Platelets 71 ,000. INR 2.4. Blood gas pH 7.0. Objective - Vital Signs Vital signs: Vital Signs Temp 93.8 F L 09/30/17 04:09 Pulse 84 09/30/17 06:00 Resp 0 L 09/30/17 09:00 BP 58/40 09/30/17 04:09 Pulse Ox 94 L 09/30/17 08:00 Intake & Output 09/29/17 09/30/17 09/30/17 18:59 06:59 18:59 Intake Total 1050 3191.454 400 Output Total 50 115 0 Balance 1000 3076.454 400 Intake: IV 420 1300 400 Calcium Gluconate 1,000 100 mg In Sodium Chloride 0.9 % 100 ml @ 100 mls/hr IVPB ONCE ONE Rx#: [id number] Dextrose 5% in Water 1, 1200 400 000 ml @ 200 mls/hr IV . Q5H45M ANTIONE with Sodium Bicarb (1 Meq/ml) 150 ml Rx#:[id number] Sodium Chloride 0.9% 1, 420 000 ml @ 80 mls/hr IV . [id number] [facility] Rx#:[id number] Intake, IV Titration 679.454 Amount Norepinephrin 4 mg-0.9% 500.00 Ns Pmx 4 mg In 250 ml @ Titrate IV .Q0M [facility] Rx#: [id number] Octreotide 200 mcg In 179.454 Sodium Chloride 0.9% 100 ml @ 25 MCG/HR 12.62 mls/ hr IV .Q8H1M [facility] Rx#: [id number] Blood Product 630 1212 Ffp 24 Cpd Unit 317 [id number] Ffp 24 Cpd Unit 299 [id number] Ffp 24 Cpd Unit 313 [id number] Ffp 24 Cpd Unit 293 [id number] Pheresis 2 As3 Unit 310 [id number] Pheresis 2 As3 Unit 310 [id number] Output: Urine 50 115 0 Other: Voiding Method Indwelling Catheter Indwelling Catheter ABP, PAP, CO, CI - Last Documented Arterial Blood Pressure 32/23 - Exam General appearance: The patient is unresponsive intubated. Poor skin color ashened sclerae icterus. HEENT: Head is normocephalic and atraumatic. Pupils are sluggish reactive. The nares are patent. Oropharynx is clear without lesions. Neck: Supple without lymphadenopathy. Trachea midline. Heart: S1 S2. Irregular. Lungs: No crackles or wheezes are heard. Abdomen: Soft, mildly distended with ascites. No peritoneal signs. No palpable organomegaly or masses. Extremities: Skin turgor is poor. No cyanosis, rash, ulceration, clubbing, or edema. Radial and pedal pulses are 2/4 bilaterally. Neurological: Cannot be assessed at this time since the patient is intubated and sedated. - Labs CBC & Chem 7: 09/30/17 05:00 09/30/17 01:35 Labs: Abnormal Lab Results - Last 24 Hours (Table) 09/28/17 09/29/17 09/29/17 Range/Units 19:45 07:51 11:13 WBC (3.8-10.6) k/uL RBC (4.30-5.90) m/uL Hgb (13.0-17.5) gm/dL Hct (39.0-53.0) % MCV (80.0-100.0) fL MCHC (31.0-37.0) g/dL RDW (11.5-15.5) % Plt Count (150-450) k/uL Neutrophils # (1.3-7.7) k/uL Neutrophils # (Manual) (1.3-7.7) k/uL Lymphocytes # (1.0-4.8) k/uL Lymphocytes # (Manual) (1.0-4.8) k/uL Monocytes # (Manual) (0-1.0) k/uL Metamyelocytes # (Man) (0) k/uL Nucleated RBCs (0-0) /100 WBC PT 24.6 H (9.0-12.0) sec INR 2.7 H (<1.2) ABG pH (7.35-7.45) ABG pCO2 (35-45) mmHg ABG pO2 (83-108) mmHg ABG HCO3 (21-25) mmol/L ABG Total CO2 (19-24) mmol/L ABG O2 Saturation (94-97) % Potassium (3.5-5.1) mmol/L Carbon Dioxide (22-30) mmol/L BUN (9-20) mg/dL Creatinine (0.66-1.25) mg/dL Glucose (74-99) mg/dL POC Glucose (mg/dL) (75-99) mg/dL Prealbumin <5.0 L (18.0-42.0) mg/dL Crossmatch See Detail 09/29/17 09/29/17 09/29/17 Range/Units 13:20 15:36 15:36 WBC 16.1 H (3.8-10.6) k/uL RBC 2.33 L (4.30-5.90) m/uL Hgb 7.8 L (13.0-17.5) gm/dL Hct 25.9 L (39.0-53.0) % MCV 111.0 H (80.0-100.0) fL MCHC 30.3 L (31.0-37.0) g/dL RDW 19.5 H (11.5-15.5) % Plt Count 83 L (150-450) k/uL Neutrophils # 14.2 H (1.3-7.7) k/uL Neutrophils # (Manual) (1.3-7.7) k/uL Lymphocytes # 0.7 L (1.0-4.8) k/uL Lymphocytes # (Manual) (1.0-4.8) k/uL Monocytes # (Manual) (0-1.0) k/uL Metamyelocytes # (Man) (0) k/uL Nucleated RBCs (0-0) /100 WBC PT (9.0-12.0) sec INR (<1.2) ABG pH (7.35-7.45) ABG pCO2 (35-45) mmHg ABG pO2 (83-108) mmHg ABG HCO3 (21-25) mmol/L ABG Total CO2 (19-24) mmol/L ABG O2 Saturation (94-97) % Potassium 6.9 H* (3.5-5.1) mmol/L Carbon Dioxide 8 L* (22-30) mmol/L BUN 96 H* (9-20) mg/dL Creatinine 3.50 H (0.66-1.25) mg/dL Glucose (74-99) mg/dL POC Glucose (mg/dL) 119 H (75-99) mg/dL Prealbumin (18.0-42.0) mg/dL Crossmatch 09/29/17 09/29/17 09/29/17 Range/Units 18:30 21:45 21:45 WBC 14.5 H (3.8-10.6) k/uL RBC 2.11 L (4.30-5.90) m/uL Hgb 7.1 L (13.0-17.5) gm/dL Hct 24.4 L (39.0-53.0) % MCV 115.2 H (80.0-100.0) fL MCHC 29.1 L (31.0-37.0) g/dL RDW 20.1 H (11.5-15.5) % Plt Count 75 L (150-450) k/uL Neutrophils # (1.3-7.7) k/uL Neutrophils # (Manual) 13.60 H (1.3-7.7) k/uL Lymphocytes # (1.0-4.8) k/uL Lymphocytes # (Manual) 0.44 L (1.0-4.8) k/uL Monocytes # (Manual) (0-1.0) k/uL Metamyelocytes # (Man) (0) k/uL Nucleated RBCs (0-0) /100 WBC PT 19.8 H (9.0-12.0) sec INR 2.2 H (<1.2) ABG pH (7.35-7.45) ABG pCO2 (35-45) mmHg ABG pO2 (83-108) mmHg ABG HCO3 (21-25) mmol/L ABG Total CO2 (19-24) mmol/L ABG O2 Saturation (94-97) % Potassium 5.4 H (3.5-5.1) mmol/L Carbon Dioxide 10 L* (22-30) mmol/L BUN 94 H* (9-20) mg/dL Creatinine 3.62 H (0.66-1.25) mg/dL Glucose 119 H (74-99) mg/dL POC Glucose (mg/dL) (75-99) mg/dL Prealbumin (18.0-42.0) mg/dL Crossmatch 09/29/17 09/30/17 09/30/17 Range/Units 22:49 01:30 01:35 WBC 17.3 H (3.8-10.6) k/uL RBC 1.80 L (4.30-5.90) m/uL Hgb 6.0 L* (13.0-17.5) gm/dL Hct 20.1 L (39.0-53.0) % MCV 111.2 H (80.0-100.0) fL MCHC 29.9 L (31.0-37.0) g/dL RDW 20.3 H (11.5-15.5) % Plt Count 77 L (150-450) k/uL Neutrophils # (1.3-7.7) k/uL Neutrophils # (Manual) 15.30 H (1.3-7.7) k/uL Lymphocytes # (1.0-4.8) k/uL Lymphocytes # (Manual) 0.69 L (1.0-4.8) k/uL Monocytes # (Manual) 1.21 H (0-1.0) k/uL Metamyelocytes # (Man) (0) k/uL Nucleated RBCs 2 H (0-0) /100 WBC PT (9.0-12.0) sec INR (<1.2) ABG pH 7.33 L 7.20 L* (7.35-7.45) ABG pCO2 <15 L* <15 L* (35-45) mmHg ABG pO2 126 H 151 H (83-108) mmHg ABG HCO3 (21-25) mmol/L ABG Total CO2 (19-24) mmol/L ABG O2 Saturation 98.5 H 98.6 H (94-97) % Potassium (3.5-5.1) mmol/L Carbon Dioxide (22-30) mmol/L BUN (9-20) mg/dL Creatinine (0.66-1.25) mg/dL Glucose (74-99) mg/dL POC Glucose (mg/dL) (75-99) mg/dL Prealbumin (18.0-42.0) mg/dL Crossmatch 09/30/17 09/30/17 09/30/17 Range/Units 01:35 04:00 05:00 WBC (3.8-10.6) k/uL RBC (4.30-5.90) m/uL Hgb (13.0-17.5) gm/dL Hct (39.0-53.0) % MCV (80.0-100.0) fL MCHC (31.0-37.0) g/dL RDW (11.5-15.5) % Plt Count (150-450) k/uL Neutrophils # (1.3-7.7) k/uL Neutrophils # (Manual) (1.3-7.7) k/uL Lymphocytes # (1.0-4.8) k/uL Lymphocytes # (Manual) (1.0-4.8) k/uL Monocytes # (Manual) (0-1.0) k/uL Metamyelocytes # (Man) (0) k/uL Nucleated RBCs (0-0) /100 WBC PT 21.4 H (9.0-12.0) sec INR 2.4 H (<1.2) ABG pH 7.00 L* (7.35-7.45) ABG pCO2 29 L (35-45) mmHg ABG pO2 343 H (83-108) mmHg ABG HCO3 7 L* (21-25) mmol/L ABG Total CO2 8 L (19-24) mmol/L ABG O2 Saturation 99.5 H (94-97) % Potassium 6.6 H* (3.5-5.1) mmol/L Carbon Dioxide 6 L* (22-30) mmol/L BUN 86 H* (9-20) mg/dL Creatinine 3.60 H (0.66-1.25) mg/dL Glucose 114 H (74-99) mg/dL POC Glucose (mg/dL) (75-99) mg/dL Prealbumin (18.0-42.0) mg/dL Crossmatch 09/30/17 Range/Units 05:00 WBC (3.8-10.6) k/uL RBC 2.06 L (4.30-5.90) m/uL Hgb 6.5 L* (13.0-17.5) gm/dL Hct 21.1 L (39.0-53.0) % MCV 102.6 H D (80.0-100.0) fL MCHC 30.7 L (31.0-37.0) g/dL RDW 21.2 H (11.5-15.5) % Plt Count 71 L (150-450) k/uL Neutrophils # (1.3-7.7) k/uL Neutrophils # (Manual) (1.3-7.7) k/uL Lymphocytes # (1.0-4.8) k/uL Lymphocytes # (Manual) (1.0-4.8) k/uL Monocytes # (Manual) (0-1.0) k/uL Metamyelocytes # (Man) 0.37 H (0) k/uL Nucleated RBCs 6 H (0-0) /100 WBC PT (9.0-12.0) sec INR (<1.2) ABG pH (7.35-7.45) ABG pCO2 (35-45) mmHg ABG pO2 (83-108) mmHg ABG HCO3 (21-25) mmol/L ABG Total CO2 (19-24) mmol/L ABG O2 Saturation (94-97) % Potassium (3.5-5.1) mmol/L Carbon Dioxide (22-30) mmol/L BUN (9-20) mg/dL Creatinine (0.66-1.25) mg/dL Glucose (74-99) mg/dL POC Glucose (mg/dL) (75-99) mg/dL Prealbumin (18.0-42.0) mg/dL Crossmatch Assessment and Plan (1) Acute upper GI bleed Narrative/Plan: 62-year-old male admitted with symptomatic anemia acute blood loss with a history of alcohol liver disease hepatitis C status post antiviral treatment presents with acute hematemesis and melena 1 day with subsequent decompensation multiorgan failure requiring intubation. Suspect esophageal variceal bleed status post recent hospitalization for upper GI bleed status post EGD with esophageal variceal banding August 2017. Current Visit: Yes Status: Acute Code(s): K92.2 - GASTROINTESTINAL HEMORRHAGE, UNSPECIFIED SNOMED Code(s): 93809585 (2) Acute blood loss anemia Current Visit: Yes Status: Acute Code(s): D62 - ACUTE POSTHEMORRHAGIC ANEMIA SNOMED Code(s): 896568232 (3) Hematemesis Current Visit: Yes Status: Acute Code(s): K92.0 - HEMATEMESIS SNOMED Code( s): 8394584 (4) Melena Current Visit: Yes Status: Acute Code(s): K92.1 - MELENA SNOMED Code(s): 6329117 (5) Esophageal varices Current Visit: No Status: Acute Code(s): I85.00 - ESOPHAGEAL VARICES WITHOUT BLEEDING SNOMED Code(s): 82199974 (6) Alcoholic cirrhosis of liver Current Visit: Yes Status: Chronic Code(s): K70.30 - ALCOHOLIC CIRRHOSIS OF LIVER WITHOUT ASCITES SNOMED Code(s): 527763927 (7) Thrombocytopenia Current Visit: No Status: Acute Code(s): D69.6 - THROMBOCYTOPENIA, UNSPECIFIED SNOMED Code(s): 234056140 (8) Hepatitis C virus infection cured after antiviral drug therapy Current Visit: No Status: Resolved Code(s): Z86.19 - PERSONAL HISTORY OF OTHER INFECTIOUS AND PARASITIC DISEASES SNOMED Code(s): 790146711 (9) Protein calorie malnutrition Current Visit: Yes Status: Acute Code(s): E46 - UNSPECIFIED PROTEIN-CALORIE MALNUTRITION SNOMED Code(s): 932990629 (10) Elevated serum creatinine Current Visit: Yes Status: Acute Code(s): R79.89 - OTHER SPECIFIED ABNORMAL FINDINGS OF BLOOD CHEMISTRY SNOMED Code(s): 579929932 (11) Elevated BUN Current Visit: Yes Status: Acute Code(s): R79.9 - ABNORMAL FINDING OF BLOOD CHEMISTRY, UNSPECIFIED SNOMED Code(s): 538439815 (12) Hyperkalemia Current Visit: Yes Status: Acute Code(s): E87.5 - HYPERKALEMIA SNOMED Code (s): 42801229 (13) Coagulopathy Current Visit: Yes Status: Acute Code(s): D68.9 - COAGULATION DEFECT, UNSPECIFIED SNOMED Code(s): 97987398 Plan: 1. Patient is a DO NOT RESUSCITATE. Continue supportive measures until daughter arrives. 2. Ex- at bedside. Daughter is on her way to discuss plan of care with medical staff. Poor prognosis. Endoscopic exams will not be pursued. Assessment and plan a care discussed with Dr. Cho
--- NOTE | 2017-09-30 10:53 | DS ---
DISCHARGE SUMMARY Allergy is unknown. He is 5 foot 9 inches height, weight is 72.575 kg, BSA 1.88 m2, BMI 23.6 kg/m2. Patient disposition is on at 9 am today 09/30/2017. FINAL DIAGNOSES: 1. Acute gastrointestinal bleeding, secondary to varicocele of the esophagus. 2. Anemia secondary to blood loss. 3. Alcoholic liver disease with alcoholic cirrhosis. 4. Prolonged PT secondary to liver cell failure. 5. Thrombocytopenia secondary to liver cirrhosis. 6. History of underlying arthritis with umbilical hernia. 7. Protein calorie deficiency with cachexia. 8. Hepatorenal syndrome with hyperkalemia. 9. Metabolic acidosis with anion gap. 10.Acute kidney injury associated with hyperkalemia, probably secondary to blood in the gastrointestinal tract. 11.History of hepatitis C, has been treated in the past. 12.History of previous esophageal varices and bleeding and was treated with banding by Dr. Cho, Gastroenterology. 13.Status post blood transfusion with severe blood loss through vomiting and nausea and also through the bowel. 14.Underlying sclerotic changes of the femoral head could be associated with vascular necrosis. 15.History of 10% compression deformity on L2 by CT scan of the abdomen, no abdominal mass and no liver mass. 16.Chronic cholecystitis with cholelithiasis with the presence of multiple calcified gallstones. CONSULTING PHYSICIANS: 1. Dr. Cho, Gastroenterology for the GI bleeding. 2. Dr. Wallace, Pulmonary and Critical Care due to his critical situation with illness and with the progression of his disease with hyperkalemia. 3. Nephrology, Dr. Gary for the underlying acute renal failure associated with hyperkalemia and possible hepatorenal syndrome. HOSPITAL COURSE: Patient presentation in the ER with severe blood loss with hemoglobin 4.1, and with the hematocrit 13.6, and he had at that time INR of 2.9 secondary to the liver failure. His PTT as well 48.0. His potassium initially was 4 with the presence of blood in the gastrointestinal tract. Patient's potassium was 7.1 with the progression to acute renal failure with the creatinine increased from 1.28 to 3.05 with the estimated glomerular filtration rate dropped to 21 from 57. His calcium was low 6.8, magnesium 1.3, and his AST 69, and total bilirubin was 2.9 on admission. His troponin was normal, less than 0.012 and his total protein 4.3, and the albumin 1.4, and prealbumin less than 5. His stool was gastric and stool was also positive for occult blood. Patient subsequently as admitted to the ICU and seen by the Critical Care as well as Dr. Cho and as well as Dr. Gary, the Nephrology and started on the bicarb and antibiotic as well as supportive care. Patient deteriorated very aggressively to become hyperkalemic and metabolic acidosis as well as the not recovering as he was in the ICU, intubated as he was FULL CODE. On the progression and early this morning, they called me from the ICU and indicating that Dr. Wallace does not have any other treatment to save the patient requesting NO CODE. His ex- was present as he has 2 daughter and both far away in the [place], [place] and they will be contacting them. Patient progressively worsening and at 9 am and announced by Dr. Wallace and disposition at 9 am on date of 09/30/17. MMKUNALL / IJN: [id number] /
[2017-09-30 11:21] LABS: Calcium 7.3 mg/dL (8.4-10.2)
[2017-09-30 11:36] LABS: Potassium 7.5 mmol/L (3.5-5.1)
--- NOTE | 2017-09-30 11:39 | P.DS ---
Providers Date of admission: 09/28/17 17:49 Expected date of discharge: 09/30/17 Attending physician: Adis Norton Consults: 09/28/17 17:49 Consult Physician Urgent Consulting Provider: Adam Wallace Consult Reason/Comments: Intensive care management Do you want consulting provider notified?: Already Contacted 09/29/17 09:21 Consult Physician Urgent Consulting Provider: Junior Liao Consult Reason/Comments: kidney failure Do you want consulting provider notified?: Yes Primary care physician: Adis Norton at 9.00 AM 09/30/17. dictated on 09/30/17 #[id number] Patient Condition at Discharge: Serious Plan - Discharge Summary Discharge Rx Participant: No New Discharge Prescriptions: No Action Folic Acid 1 mg PO DAILY Pyridoxine [Vitamin B-6] 100 mg PO DAILY Multivitamins, Thera [Multivitamin (formulary)] 1 tab PO DAILY Thiamine [Vitamin B-1] 100 mg PO DAILY Cyanocobalamin [Vitamin B-12] 500 mcg PO DAILY Propranolol [Inderal] 5 mg PO DAILY Spironolactone [Aldactone] 50 mg PO DAILY Spironolactone [Aldactone] 25 mg PO HS Furosemide [Lasix] 40 mg PO BID Lactulose 20 gm PO TID Discharge Medication List Cyanocobalamin [Vitamin B-12] 500 mcg PO DAILY 02/14/15 [History] Folic Acid 1 mg PO DAILY 02/14/15 [History] Multivitamins, Thera [Multivitamin (formulary)] 1 tab PO DAILY 02/14/15 [History ] Pyridoxine [Vitamin B-6] 100 mg PO DAILY 02/14/15 [History] Thiamine [Vitamin B-1] 100 mg PO DAILY 02/14/15 [History] Propranolol [Inderal] 5 mg PO DAILY 07/10/15 [History] Spironolactone [Aldactone] 50 mg PO DAILY 07/10/15 [History] Spironolactone [Aldactone] 25 mg PO HS 08/29/17 [History] Furosemide [Lasix] 40 mg PO BID 09/28/17 [History] Lactulose 20 gm PO TID 09/28/17 [History] Follow up Appointment(s)/Referral(s): Adis Norton MD [Primary Care Provider] - 1-2 days
--- NOTE | 2017-09-30 13:06 | CDI ---
Last Revision, July 2017 Documentation Clarification Form Mortality review Date: 09/30/2017 12:47:00 PM From: Leslie Lerma RN, CCDS Admit Date: 09/28/2017 5:49:00 PM Patient Name: Bulmaro Jhaveri Visit Number: [id number] ATTENTION: The Clinical Documentation Specialists (CDI) and [facility] Coding Staff appreciate your assistance in clarifying documentation. Please respond to the clarification below the line at the bottom and electronically sign. The CDI & [facility] Coding staff will review the response and follow-up if needed. Please note: Queries are made part of the Legal Health Record. If you have any questions, please contact the author of this message via ITS. Dr. Adis Norton, Hypotension is documented in the pulmonary progress note and requires further specificity. Patient history/risk factors: Admitted with GIB d/t esophageal varicies, ETOH liver disease with cirrhosis Clinical Indicators: 09/30 Pulmonary progress note: the patient developed worsening respiratory failure multiorgan system failure profound hypotension liver failure and patient required very intensive management through the night. He received a number of fluid boluses and received probably more than 6-8 L. The patient was given norepinephrine at maximal doses. Despite all of this, the patient did poorly as the night progressed 09/30 Vitals: Temp 91.7-93.8, RR 32 -30, B/P 80 systolic and below, spo2 100% on 100% mechanical vent Treatment: 6-8 L IVF Max dose Levophed 4U PC and 4 U FFP transfused In your professional opinion, can you please provide further specify of hypotension based on presentation and treatment if known? Hypovolemic Shock Cause Cardiogenic Shock Cause Other, please specify Unable to determine Please continue to document in your progress notes and discharge summary in order to capture severity of illness and risk of mortality. Include clinical findings that support your diagnosis. MTDD
--- NOTE | 2017-09-30 13:31 | CDI ---
Last Revision, July 2017 Documentation Clarification Form Mortality Review Date: 09/30/2017 1:07:00 PM From: Leslie Lerma RN, CCDS Admit Date: 09/28/2017 5:49:00 PM Patient Name: Bulmaro Jhaveri Visit Number: [id number] ATTENTION: The Clinical Documentation Specialists (CDI) and [facility] Coding Staff appreciate your assistance in clarifying documentation. Please respond to the clarification below the line at the bottom and electronically sign. The CDI & [facility] Coding staff will review the response and follow-up if needed. Please note: Queries are made part of the Legal Health Record. If you have any questions, please contact the author of this message via ITS. Dr. Adis Norton Hypoxemic respiratory is documented and requires acuity. History/Risk Factors: Tobacco use: nicotine dependency Clinical Indicators: 09/30 Pulmonary progress note: "Hypoxemic respiratory failure requiring intubation and mechanical ventilation." Multiorgan system failure, Profound metabolic acidosis Treatment: Continuous Pulse ox: per ICU protocol Vent/: pt was intubated and continued to decompensate O2: 2l to room air to 100% FIO2 Mechanical Vent In your professional opinion, can you please clarify the acuity of the above documented condition? Acuity: Acute Chronic Acute on Chronic Other Diagnosis, please specify Unable to determine Please continue to document in your progress notes and discharge summary in order to capture severity of illness and risk of mortality. Include clinical findings that support your diagnosis. BETTYD
[2017-09-30] MEDS ORDERED: LACTULOSE 200 GM/300 ML (FROM 1/2 GAL JUG) RECTAL SCH (23:09)
--- NOTE | 2017-10-02 12:44 | CT ---
EXAMINATION TYPE: CT brain wo con DATE OF EXAM: 09/30/2017 COMPARISON: NONE HISTORY: AMS CT DLP: 1236.60 mGycm Automated exposure control for dose reduction was used. FINDINGS: There is mild cerebral cortical atrophy. There is no mass effect nor midline shift. There is no sign of intracranial hemorrhage. The calvarium is intact. Exam is limited slightly by motion. IMPRESSION: MILD ATROPHY. NO ACUTE ABNORMALITY.
== END 2017-09-30 14:37 | disposition expired | DRG 432 ==
LOC: EC 14:28 → 6ICU 17:49
PROVIDERS: ADMIT Internal Medicine; ATTEND Internal Medicine
PROC: 30233N1 Transfusion of Nonautologous Red Blood Cells into Peripheral Vein, Percutaneous Approach (ICD-10-PCS; 2017-09-28)
PROC: 30233L1 Transfusion of Nonautologous Fresh Plasma into Peripheral Vein, Percutaneous Approach (ICD-10-PCS; 2017-09-29)
PROC: 5A1935Z Respiratory Ventilation, Less than 24 Consecutive Hours (ICD-10-PCS; principal; 2017-09-30)
PROC: 0BH17EZ Insertion of Endotracheal Airway into Trachea, Via Natural or Artificial Opening (ICD-10-PCS; 2017-09-30)
DX: K70.31 Alcoholic cirrhosis of liver with ascites (principal); I85.11 Secondary esophageal varices with bleeding; R57.1 Hypovolemic shock; J96.01 Acute respiratory failure with hypoxia; K76.7 Hepatorenal syndrome; G72.1 Alcoholic myopathy; E44.0 Moderate protein-calorie malnutrition; R64 Cachexia; D68.4 Acquired coagulation factor deficiency; N18.4 Chronic kidney disease, stage 4 (severe); K76.6 Portal hypertension; D62 Acute posthemorrhagic anemia; N17.9 Acute kidney failure, unspecified; E87.2 Acidosis; K80.10 Calculus of gallbladder with chronic cholecystitis without obstruction; Z66 Do not resuscitate; K72.90 Hepatic failure, unspecified without coma; D69.59 Other secondary thrombocytopenia; E87.5 Hyperkalemia; I34.0 Nonrheumatic mitral (valve) insufficiency; E55.9 Vitamin D deficiency, unspecified; F17.210 Nicotine dependence, cigarettes, uncomplicated; K31.89 Other diseases of stomach and duodenum; J44.9 Chronic obstructive pulmonary disease, unspecified; D75.89 Other specified diseases of blood and blood-forming organs; I25.10 Atherosclerotic heart disease of native coronary artery without angina pectoris; I25.2 Old myocardial infarction; K21.9 Gastro-esophageal reflux disease without esophagitis; K44.9 Diaphragmatic hernia without obstruction or gangrene; K42.9 Umbilical hernia without obstruction or gangrene; F10.21 Alcohol dependence, in remission; M19.91 Primary osteoarthritis, unspecified site; N40.0 Benign prostatic hyperplasia without lower urinary tract symptoms; Z68.23 Body mass index [BMI] 23.0-23.9, adult; Z79.899 Other long term (current) drug therapy; Z86.19 Personal history of other infectious and parasitic diseases; Z85.05 Personal history of malignant neoplasm of liver; Z87.311 Personal history of (healed) other pathological fracture
CPT/HCPCS: 36415; 36600; 51702; 70450; 71045; 74150; 80048; 80053; 82140; 82271; 82272; 82550; 82553; 82805; 83735; 84134; 84484; 85025; 85610; 85730; 86850; 86870; 86880; 86900; 86901; 86902; 86920; 93005; 94002; 96361; 96365; 96375; 99291